=== PATIENT | female | born 1960 | race Caucasian/White ===

== ENCOUNTER → 2020-03-14 12:11 | Outpatient (BNVA) | payer OTHER, SELFPAY | PROVIDERS: PCP Internal Medicine; Referring Provider Internal Medicine; Visit Provider Physician Assistant ==

== ENCOUNTER → 2020-03-28 08:21 | Outpatient (BNVA) | payer OTHER, SELFPAY | PROVIDERS: PCP Internal Medicine; Visit Provider Surgery ==

== ENCOUNTER 2020-04-16 09:22 | Outpatient (REF) | payer OTHER, SELFPAY ==
--- NOTE | ~2020-04-16 | XR_ITS ---
EXAMINATION: XR CHEST CLINICAL INFORMATION: Encounter for other preprocedural examination COMPARISON: None TECHNIQUE: 2 views of the chest were obtained. FINDINGS: No significant abnormality is noted involving the heart, lungs, mediastinum, bony thorax or soft tissues. XR/XR chest 2V IMPRESSION: No acute pulmonary disease.
--- NOTE | ~2020-04-16 | US_ITS ---
EXAMINATION: US COMPLETE ABDOMEN WITH LIVER ELASTOGRAPHY CLINICAL INFORMATION: Obesity COMPARISON: None. TECHNIQUE: Real-time imaging of the abdominal viscera. Noninvasive ultrasound liver fibrosis assessment is performed using Myrtle ElastPQ point quantification shear wave elastography (pSWE) with a C5-2 MHz transducer. Multiple elastography samples are obtained. FINDINGS: PANCREAS: The visualized pancreatic head and body are normal in appearance. The remainder of the pancreas is obscured from visualization by the overlying bowel gas. ABDOMINAL AORTA: The proximal, middle, and distal aortic segments are normal in caliber. INFERIOR VENA CAVA: Visualized portions are normal. LIVER: Liver echotexture is increased. There is a hypoechoic area adjacent to the gallbladder, characteristic location of focal fatty sparing. The liver is normal in contour. No focal lesion or intrahepatic biliary duct dilatation. The right lobe measures 16 cm in length. The left lobe measures 12 cm in length. Portal flow is normal/hepatopedal. Shear wave liver elastography median stiffness is 1.3 m/s (reference: normal median stiffness is 1.3 m/s or less). IQR/median stiffness to assess sampling precision is 0.08 (reference: good quality data set is IQR/median stiffness of 0.15 or less). GALLBLADDER: Normal. The gallbladder is physiologically distended without evidence of stones, sludge, polyps, wall thickening or pericholecystic fluid. COMMON BILE DUCT: Normal in caliber measuring 0.5 cm in diameter. RIGHT KIDNEY: Normal. No hydronephrosis. No renal calculi or focal parenchymal lesions. The kidney measures 11 cm in maximum dimension. LEFT KIDNEY: There is a small peripelvic cyst in the lower pole measuring 1.4 x 1 x 1.1 cm.. No hydronephrosis. No renal calculi or mass. The kidney measures 12 cm in maximum dimension. SPLEEN: Normal. The spleen measures 9 cm in maximum dimension. FREE FLUID: None. US/US abdomen comp w elastography IMPRESSION: 1. Impression: Echogenic liver suggestive of fatty infiltration. Small left renal cyst. Limited visualization of the pancreas. 2. Liver elastography: Normal. No evidence of compensated advanced chronic liver disease. REFERENCE: Society of Radiologists in Ultrasound Liver Stiffness Thresholds (2019): LIVER STIFFNESS THRESHOLDS: *Liver Stiffness equal or less than 1.3 m/s: High probability of being normal. *Liver Stiffness less than 1.7 m/s: In the absence of other known clinical signs, rules out compensated advanced chronic liver disease. *Liver Stiffness 1.7-2.1 m/s: Suggestive of compensated advanced chronic liver disease but need further test for confirmation. *Liver Stiffness over 2.1 m/s: Rules in compensated advanced chronic liver disease. *Liver Stiffness over 2.4 m/s: Suggestive of clinically significant portal hypertension. QUALITY OF DATA SET: *IQR/Median value equal or less than 0.15 implies a quality data set. *IQR/Median value over 0.15 implies a poor quality data set. SIGNIFICANT CHANGE FROM PRIOR EXAM: Significant change if liver stiffness measurement is 10% or greater from prior exam. OTHER CONSIDERATIONS: The stage of liver fibrosis may be overestimated in the setting of acute hepatitis, liver inflammation, elevated liver function tests, hepatic vascular congestion, obstructive cholestasis, non-fasting state, and infiltrative diseases such as amyloidosis and lymphoma. In some patients with NAFLD, the liver stiffness thresholds for compensated advanced chronic liver disease may be lower. In causes other than viral hepatitis and NAFLD, liver stiffness thresholds are not well established.
--- NOTE | 2020-04-16 11:20 | ECG_ITS ---
Test Reason : PREOP Blood Pressure : / mmHG Vent. Rate : 064 BPM Atrial Rate : 064 BPM P-R Int : 164 ms QRS Dur : 094 ms QT Int : 426 ms P-R-T Axes : 028 051 024 degrees QTc Int : 439 ms Normal sinus rhythm Normal ECG No previous ECGs available Referred By: Marcelina Rosales Electronically Signed By:EULOGIO PARRY MD
[2020-04-16 11:39] LABS: MANUAL DIFF FLAG NO
[2020-04-16 11:50] LABS: Basophils Absolute Auto 0.1 X10*3/uL (0.0-0.2); Basophils Percent Auto 0.9 % (0-2); Eosinophils Absolute Auto 0.2 X10*3/uL (0.0-0.4); Eosinophils Percent Auto 3.9 % (0-4); Hematocrit 42.3 % (37-47); Hemoglobin 14.2 g/dl (12.0-16.0); Imm Gran Abs Auto 0.01 X10*3/uL (0.00-0.03); Imm Gran Pct Auto 0.2 % (0.0-0.4); Lymphocytes Absolute Auto 2.1 X10*3/uL (1.2-4.9); Lymphocytes Percent Auto 36.7 % (20-40); Mean Corpuscular HGB Conc 33.6 g/dl (31.0-35.0); Mean Corpuscular Hemoglobin 29.1 pg (27.0-33.0); Mean Corpuscular Volume 86.7 fL (80-98); Mean Platelet Volume 11.2 fL (9.4-12.3); Monocytes Absolute Auto 0.3 X10*3/uL (0.1-1.2); Monocytes Percent Auto 5.7 % (2-11); Neutrophils Percent Auto 52.6 % (45-73); Platelet Count 229 X10*3/uL (160-400); Red Blood Count 4.88 X10*6/uL (4.20-5.50); Red Cell Distribution Width 12.9 % (11.0-16.0); White Blood Count 5.7 X10*3/uL (4.8-10.8)
[2020-04-16 11:58] LABS: INTERNATIONAL NORM RATIO 0.9 (0.9-1.1)
[2020-04-16 12:26] LABS: Alanine Aminotransferase 51 U/L (0-31); Albumin Level 4.7 g/dL (3.5-5.0); Alkaline Phosphatase 83 U/L (39-117); Anion Gap 12 (12-20); Aspartate Amino Transferase 32 U/L (5-31); Bilirubin Total 0.4 mg/dL (0.0-1.0); Blood Urea Nitrogen 24 mg/dL (9-16); C Reactive Protein 1.29 mg/dL (< or = 0.50); Calcium 9.7 mg/dL (8.4-10.2); Carbon Dioxide 26 mmol/L (22-29); Chloride 108 mmol/L (96-108); Cholesterol 187 mg/dL; Estimated Glomerular Filt Rate > 60; Glucose Random 137 mg/dL (60-115); HDL Cholesterol 36 mg/dL; LDL Cholesterol Calculated 124 mg/dl; Potassium 4.6 mmol/L (3.3-5.1); Sodium 141 mmol/L (135-145); Total Protein 7.2 g/dL (6.5-8.0); Triglycerides 135 mg/dL
[2020-04-16 12:50] LABS: TSH reflex Free T4 0.07 uIU/mL (0.32-4.0); Vitamin D 25-OH Total 32.7 ng/mL (>30)
[2020-04-16 13:09] LABS: Estimated Average Glucose 157 mg/dL; Hemoglobin A1c % 7.1 %
[2020-04-16 13:24] LABS: Ferritin 101 ng/mL (10-250); Free T4 (Free Thyroxine) 1.43 ng/dL (0.71-1.85)
[2020-04-17 11:02] LABS: Insulin Level Total 18.5 uIU/mL
[2020-04-17 14:37] LABS: H Pylori Breath Test NOT DETECTED (NOT DETECTED)
[2020-04-17 19:06] LABS: Folate 17.9 ng/mL (> or = 4.0); Vitamin B12 1070 pg/mL (200-900)
[2020-04-20 02:41] LABS: Zinc 85 mcg/dL (60-130)
[2020-04-20 11:17] LABS: Vitamin B1 9 nmol/L (8-30)
[2020-04-22 02:11] LABS: Vitamin A 39 mcg/dL (38-98)
== END 2020-04-16 09:23 | disposition home or self-care (01) ==
LOC: HO.US 09:22
PROVIDERS: Physician Assistant; PCP Internal Medicine; Visit Provider Surgery
DX: Z01.818 Encounter for other preprocedural examination (principal); E66.01 Morbid (severe) obesity due to excess calories; K21.9 Gastro-esophageal reflux disease without esophagitis; E10.59 Type 1 diabetes mellitus with other circulatory complications; I15.2 Hypertension secondary to endocrine disorders; Z90.3 Acquired absence of stomach [part of]; Z98.84 Bariatric surgery status; Z98.890 Other specified postprocedural states
CPT/HCPCS: 36415; 71046; 76705; 76981; 80053; 80061; 82306; 82607; 82728; 82746; 83013; 83036; 83525; 84425; 84439; 84443; 84590; 84630; 85025; 85610; 86140; 93005

== ENCOUNTER 2020-04-17 10:04 | Outpatient (REF) | payer OTHER, SELFPAY ==
--- NOTE | ~2020-04-17 | FL_ITS ---
EXAMINATION: XR GI SERIES CLINICAL INFORMATION: Obesity COMPARISON: None TECHNIQUE: Upper GI series with air, patient swallowed thick and thin barium. FINDINGS: Normal esophageal motility and distention. No mass or mucosal lesions seen in the esophagus, stomach, duodenal bulb. No hiatal hernia seen. No reflux seen during the course of the procedure. The barium passes into the proximal small bowel. FLUOROSCOPY TIME: 0.9 minutes DOSE AREA PRODUCT: 24 uGy-m2 (microgray-meter squared) FL/FL upper GI series IMPRESSION: No significant abnormality demonstrated by barium study.
== END 2020-04-17 10:05 | disposition home or self-care (01) ==
LOC: HO.XRAY 10:04
PROVIDERS: PCP Internal Medicine; Visit Provider Surgery
DX: Z01.818 Encounter for other preprocedural examination (principal); K21.9 Gastro-esophageal reflux disease without esophagitis; I15.2 Hypertension secondary to endocrine disorders; E66.01 Morbid (severe) obesity due to excess calories; E10.59 Type 1 diabetes mellitus with other circulatory complications
CPT/HCPCS: 74240

== ENCOUNTER → 2020-04-25 08:16 | Outpatient (BNVA) | payer OTHER, SELFPAY | PROVIDERS: PCP Internal Medicine; Visit Provider Surgery ==

== ENCOUNTER → 2020-04-30 08:11 | Outpatient (BNVA) | payer OTHER, SELFPAY | PROVIDERS: PCP Internal Medicine; Visit Provider Dietitian, Registered ==

== ENCOUNTER → 2020-05-23 08:11 | Outpatient (BNVA) | payer OTHER, SELFPAY | PROVIDERS: PCP Internal Medicine; Visit Provider Surgery ==

== ENCOUNTER → 2020-05-26 08:12 | Outpatient (BNVA) | payer OTHER, SELFPAY | PROVIDERS: PCP Internal Medicine; Visit Provider Dietitian, Registered | DX: E66.9 Obesity, unspecified (principal) | CPT/HCPCS: 97802 ==

== ENCOUNTER → 2020-06-13 08:04 | Outpatient (BNVA) | payer OTHER, SELFPAY | PROVIDERS: PCP Internal Medicine; Visit Provider Surgery ==

== ENCOUNTER → 2020-06-20 08:15 | Outpatient (BNVA) | payer OTHER, SELFPAY | PROVIDERS: PCP Internal Medicine; Visit Provider Dietitian, Registered | DX: E66.9 Obesity, unspecified (principal); Z68.36 Body mass index [BMI] 36.0-36.9, adult | CPT/HCPCS: 97803 ==

== ENCOUNTER → 2020-07-07 07:16 | Outpatient (BNVA) | payer OTHER, SELFPAY | PROVIDERS: PCP Internal Medicine; Visit Provider Surgery ==

== ENCOUNTER → 2020-07-11 13:05 | Outpatient (BNVA) | payer OTHER, SELFPAY | PROVIDERS: PCP Internal Medicine; Referring Provider Internal Medicine; Visit Provider Physician Assistant ==

== ENCOUNTER 2020-07-15 06:44 | Inpatient (IN) | payer OTHER, SELFPAY ==
[2020-07-07 10:04] VITALS: BMI 37.1
[2020-07-08 13:21] LABS: MANUAL DIFF FLAG NO
[2020-07-08 13:26] LABS: Basophils Percent Auto 0.6 % (0-2); Eosinophils Absolute Auto 0.3 X10*3/uL (0.0-0.4); Eosinophils Percent Auto 5.7 % (0-4); Hematocrit 42.9 % (37-47); Hemoglobin 13.9 g/dl (12.0-16.0); Imm Gran Abs Auto 0.01 X10*3/uL (0.00-0.03); Imm Gran Pct Auto 0.2 % (0.0-0.4); Lymphocytes Absolute Auto 1.8 X10*3/uL (1.2-4.9); Lymphocytes Percent Auto 38.2 % (20-40); Mean Corpuscular HGB Conc 32.4 g/dl (31.0-35.0); Mean Corpuscular Hemoglobin 27.9 pg (27.0-33.0); Mean Platelet Volume 11.3 fL (9.4-12.3); Monocytes Absolute Auto 0.3 X10*3/uL (0.1-1.2); Monocytes Percent Auto 6.1 % (2-11); Neutrophils Absolute Auto 2.4 X10*3/uL (2.0-8.3); Neutrophils Percent Auto 49.2 % (45-73); Platelet Count 203 X10*3/uL (160-400); Red Blood Count 4.99 X10*6/uL (4.20-5.50); Red Cell Distribution Width 12.8 % (11.0-16.0); White Blood Count 4.8 X10*3/uL (4.8-10.8)
[2020-07-08 13:30] LABS: Prothrombin Time 11.3 SEC (10.8-13.0)
[2020-07-08 13:34] LABS: Partial Thromboplastin Time 36.4 SEC (24.1-38.0)
[2020-07-08 13:36] LABS: Estimated Average Glucose 134 mg/dL; Hemoglobin A1c % 6.3 %
[2020-07-08 14:04] LABS: Alanine Aminotransferase 28 U/L (0-31); Albumin Level 4.5 g/dL (3.5-5.0); Alkaline Phosphatase 86 U/L (39-117); Anion Gap 10 (12-20); Aspartate Amino Transferase 20 U/L (5-31); Bilirubin Total 0.4 mg/dL (0.0-1.0); Blood Urea Nitrogen 21 mg/dL (9-16); C Reactive Protein 1.36 mg/dL (< or = 0.50); Calcium 9.7 mg/dL (8.4-10.2); Carbon Dioxide 28 mmol/L (22-29); Chloride 106 mmol/L (96-108); Cholesterol 209 mg/dL; Estimated Glomerular Filt Rate > 60; Glucose Random 123 mg/dL (60-115); HDL Cholesterol 40 mg/dL; LDL Cholesterol Calculated 135 mg/dl; Potassium 4.3 mmol/L (3.3-5.1); Sodium 140 mmol/L (135-145); Total Protein 7.1 g/dL (6.5-8.0); Triglycerides 170 mg/dL
[2020-07-08 14:08] LABS: Erythrocyte Sedimentation Rate 6 MM/HR (0-20)
[2020-07-08 14:22] LABS: Vitamin B12 940 pg/mL (200-900)
[2020-07-08 14:27] LABS: TSH reflex Free T4 0.05 uIU/mL (0.32-4.0)
[2020-07-08 15:42] LABS: Free T4 (Free Thyroxine) 1.32 ng/dL (0.71-1.85)
[2020-07-09 12:57] LABS: Insulin Level Total 16.4 uIU/mL
[2020-07-09 13:46] LABS: Lyme Abs Screen <0.90 index
[2020-07-09 15:01] LABS: IgA 132 mg/dL (47-310); IgG 876 mg/dL (600-1640); IgM 47 mg/dL (50-300)
[2020-07-09 22:17] LABS: Prot Elec - Albumin 4.2 g/dL (3.8-4.8); Prot Elec - Alpha1 0.3 g/dL (0.2-0.3); Prot Elec - Alpha2 0.7 g/dL (0.5-0.9); Prot Elec - Beta 1 0.4 g/dL (0.4-0.6); Prot Elec - Beta 2 0.4 g/dL (0.2-0.5); Prot Elec - Gamma 0.8 g/dL (0.8-1.7); Prot Elec - Total Protein 6.7 g/dL (6.1-8.1)
[2020-07-10 13:57] LABS: Myeloperoxidase Antibody <1.0 AI; Proteinase 3 PR3 Antibodies <1.0 AI
[2020-07-11 14:11] LABS: Anti Nuclear Antibody Screen NEGATIVE (NEGATIVE)
--- NOTE | 2020-07-14 08:29 | HO.ANESPROP2 ---
Documented by User: Lucia Pabon 07/14/20 10:11 HPI - Anesthesia Eval Consult details Narrative: 59yo F for Gastrectomy Sleeve h/o SVT, on Beta-skylar, no ablation (pt considering in future) PMFSH Active Problems Active Problems: All Active Problems (Updated 07/07/20 @ 10:08 by Beata Velazquez) Morbid obesity (Acute) Hypothyroidism (acquired) (Acute) Diabetes mellitus (Acute) Hypertension associated with type 1 diabetes mellitus (Acute) Anxiety (Acute) GERD (gastroesophageal reflux disease) (Acute) Obstructive sleep apnea on CPAP (Acute) Major depressive disorder, single episode, moderate (Acute) BMI 39.0-39.9,adult (Acute) BMI 38.0-38.9,adult (Acute) BMI 37.0-37.9, adult (Acute) Obesity (Acute) Back pain (Acute) Knee pain (Acute) Asthma (Acute) Low back pain (Acute) Past Medical History Medical History Arthritis Asthma Back pain COVID-19 vaccine administered Depression Diabetes GERD (gastroesophageal reflux disease) H. pylori infection History of anxiety HTN (hypertension) Knee pain Low back pain Obesity Sleep apnea SVT (supraventricular tachycardia) Thyroid disease Family History Family History Mother No problems noted. Father Hypertension Brother No problems noted. 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 If so, by whom?: No Are you DNR?: No Advance Directives Information Provided: No Recently lost weight without trying: No Eating poorly because of decreased appetite: No Nutrition Risks: No Nutritional Risk Poor oral hygiene: No (has dental crowns) Meds Allergies Allergy/AdvReac Type Severity Reaction Status Date / Time epinephrine [EPINEPHRINE] Allergy Severe throat Verified 07/15/20 07:24 closes oxycodone [OXYCODONE] Allergy Severe severe Verified 07/15/20 07:24 itching esomeprazole [From NEXIUM] AdvReac Mild nausea/head Verified 07/15/20 07:24 ache omeprazole [From PRILOSEC] AdvReac Mild nausea/head Verified 07/15/20 07:24 ache Home Medications Medication Instructions Recorded Confirmed Last Taken Type amlodipine 5 mg tablet 5 mg PO BEDTIME 03/14/20 07/07/20 Unknown History escitalopram oxalate 10 mg tablet 10 mg PO DAILY 03/14/20 07/07/20 Unknown History levothyroxine 137 mcg capsule 112 mcg PO QAM 03/14/20 07/07/20 07/15/20 History metoprolol succinate 200 mg 100 mg PO BID 03/14/20 07/07/20 Unknown History tablet,extended release 24 hr pantoprazole 40 mg tablet,delayed 40 mg PO DAILY 03/14/20 07/07/20 Unknown History release albuterol sulfate 90 mcg/actuation 2 puff INHALATION Q6H PRN 03/28/20 07/07/20 Unknown History aerosol inhaler lorazepam 0.5 mg tablet 0.5 mg PO BEDTIME PRN 03/28/20 07/07/20 Unknown History Exam Exam Date and Time: July 14, 2020 0829 Height,Weight and Vital Signs: Height 5 ft 2 in Weight 92.079 kg Pertinent Lab Results Pertinent Lab Results: Laboratory Tests 07/08/20 07/08/20 07/08/20 12:55 12:55 12:55 WBC 4.8 RBC 4.99 Hgb 13.9 Hct 42.9 MCV 86.0 MCH 27.9 MCHC 32.4 RDW 12.8 Plt Count 203 MPV 11.3 Immature Gran % (Auto) 0.2 Neut % (Auto) 49.2 Lymph % (Auto) 38.2 [place] % (Auto) 6.1 Eos % (Auto) 5.7 H Baso % (Auto) 0.6 Lymph # (Auto) 1.8 [place] # (Auto) 0.3 Eos # (Auto) 0.3 Baso # (Auto) 0.0 Abs Immat Gran (auto) 0.01 Absolute Neuts (auto) 2.4 Absolute Nucleated RBC 0.000 Nucleated RBC % (auto) 0.0 ESR PT 11.3 INR 1.0 APTT 36.4 Sodium 140 Potassium 4.3 Chloride 106 Carbon Dioxide 28 Anion Gap 10 L BUN 21 H Creatinine 0.80 Estim Creat Clear Calc 79.0 Estimated GFR > 60 Random Glucose 123 H Estimat Average Glucose Hemoglobin A1c % Total Insulin Calcium 9.7 Total Bilirubin 0.4 AST 20 ALT 28 Alkaline Phosphatase 86 Total Creatine Kinase C-Reactive Protein 1.36 H Total Protein 7.1 Total Protein (PEP) Albumin 4.5 Albumin (PEP) Yewop-0-Xcxvfuimi Ybiwn-0-Xnagldlvs Ktgw-4-Gzikyjsg Qqvq-7-Tvbnvfvn Gamma Globulins Abnorm Protein Band 1 Abnorm Protein Band 2 Abnorm Protein Band 3 PEP Interpretation Triglycerides 170 Cholesterol 209 LDL Cholesterol, Calc 135 HDL Cholesterol 40 Vitamin B12 TSH 0.05 L Free T4 1.32 IgG Total IgA Total IgM VESTA Interpretation JOSUE Screen JOSUE Titer JOSUE Titer 2 JOSUE Titer 3 JOSUE Pattern JOSUE Pattern 2 JOSUE Pattern 3 Proteinase 3 (PR3) Ab Myeloperoxidase Ab Lyme Screen IgG & IgM Lyme Progressive Test Blood Type Antibody Screen 07/08/20 07/08/20 07/08/20 12:55 12:55 12:55 WBC RBC Hgb Hct MCV MCH MCHC RDW Plt Count MPV Immature Gran % (Auto) Neut % (Auto) Lymph % (Auto) [place] % (Auto) Eos % (Auto) Baso % (Auto) Lymph # (Auto) [place] # (Auto) Eos # (Auto) Baso # (Auto) Abs Immat Gran (auto) Absolute Neuts (auto) Absolute Nucleated RBC Nucleated RBC % (auto) ESR PT INR APTT Sodium Potassium Chloride Carbon Dioxide Anion Gap BUN Creatinine Estim Creat Clear Calc Estimated GFR Random Glucose Estimat Average Glucose 134 Hemoglobin A1c % 6.3 Total Insulin 16.4 Calcium Total Bilirubin AST ALT Alkaline Phosphatase Total Creatine Kinase C-Reactive Protein Total Protein Total Protein (PEP) Albumin Albumin (PEP) Jklfw-1-Letopahzn Hemro-0-Wtkbxdlul Pcrt-7-Bgfkymoh Wncd-4-Gehqhygv Gamma Globulins Abnorm Protein Band 1 Abnorm Protein Band 2 Abnorm Protein Band 3 PEP Interpretation Triglycerides Cholesterol LDL Cholesterol, Calc HDL Cholesterol Vitamin B12 TSH Free T4 IgG Total IgA Total IgM VESTA Interpretation JOSUE Screen JOSUE Titer JOSUE Titer 2 JOSUE Titer 3 JOSUE Pattern JOSUE Pattern 2 JOSUE Pattern 3 Proteinase 3 (PR3) Ab Myeloperoxidase Ab Lyme Screen IgG & IgM Lyme Progressive Test Blood Type O Positive Antibody Screen NEGATIVE 07/08/20 07/08/20 07/08/20 12:55 12:55 12:55 WBC RBC Hgb Hct MCV MCH MCHC RDW Plt Count MPV Immature Gran % (Auto) Neut % (Auto) Lymph % (Auto) [place] % (Auto) Eos % (Auto) Baso % (Auto) Lymph # (Auto) [place] # (Auto) Eos # (Auto) Baso # (Auto) Abs Immat Gran (auto) Absolute Neuts (auto) Absolute Nucleated RBC Nucleated RBC % (auto) ESR 6 PT INR APTT Sodium Potassium Chloride Carbon Dioxide Anion Gap BUN Creatinine Estim Creat Clear Calc Estimated GFR Random Glucose Estimat Average Glucose Hemoglobin A1c % Total Insulin Calcium Total Bilirubin AST ALT Alkaline Phosphatase Total Creatine Kinase 59 C-Reactive Protein Total Protein Total Protein (PEP) Albumin Albumin (PEP) Apluk-9-Ekoznhnmb Rjnja-3-Fzjwiysfm Lfcw-1-Zvrnajuj Gnff-6-Eydozhcc Gamma Globulins Abnorm Protein Band 1 Abnorm Protein Band 2 Abnorm Protein Band 3 PEP Interpretation Triglycerides Cholesterol LDL Cholesterol, Calc HDL Cholesterol Vitamin B12 TSH Free T4 IgG Total IgA Total IgM VESTA Interpretation JOSUE Screen JOSUE Titer JOSUE Titer 2 JOSUE Titer 3 JOSUE Pattern JOSUE Pattern 2 JOSUE Pattern 3 Proteinase 3 (PR3) Ab Myeloperoxidase Ab Lyme Screen IgG & IgM <0.90 Lyme Progressive Test TNP Blood Type Antibody Screen 07/08/20 07/08/20 07/08/20 12:55 12:55 12:55 WBC RBC Hgb Hct MCV MCH MCHC RDW Plt Count MPV Immature Gran % (Auto) Neut % (Auto) Lymph % (Auto) [place] % (Auto) Eos % (Auto) Baso % (Auto) Lymph # (Auto) [place] # (Auto) Eos # (Auto) Baso # (Auto) Abs Immat Gran (auto) Absolute Neuts (auto) Absolute Nucleated RBC Nucleated RBC % (auto) ESR PT INR APTT Sodium Potassium Chloride Carbon Dioxide Anion Gap BUN Creatinine Estim Creat Clear Calc Estimated GFR Random Glucose Estimat Average Glucose Hemoglobin A1c % Total Insulin Calcium Total Bilirubin AST ALT Alkaline Phosphatase Total Creatine Kinase C-Reactive Protein Total Protein Total Protein (PEP) 6.7 Albumin Albumin (PEP) 4.2 Dwcff-1-Qwxikdxjr 0.3 Umfid-1-Bhcouwxlp 0.7 Shrb-2-Bowqnvrn 0.4 Firj-0-Npyubxzw 0.4 Gamma Globulins 0.8 Abnorm Protein Band 1 TNP Abnorm Protein Band 2 TNP Abnorm Protein Band 3 TNP PEP Interpretation SEE NOTE Triglycerides Cholesterol LDL Cholesterol, Calc HDL Cholesterol Vitamin B12 940 H TSH Free T4 IgG Total 876 IgA Total 132 IgM 47 L VESTA Interpretation JOSUE Screen NEGATIVE JOSUE Titer TNP JOSUE Titer 2 TNP JOSUE Titer 3 TNP JOSUE Pattern TNP JOSUE Pattern 2 TNP JOSUE Pattern 3 TNP Proteinase 3 (PR3) Ab <1.0 Myeloperoxidase Ab <1.0 Lyme Screen IgG & IgM Lyme Progressive Test Blood Type Antibody Screen Narrative Narrative: EKG 03/2020 Vent. Rate : 064 BPM Atrial Rate : 064 BPM P-R Int : 164 ms QRS Dur : 094 ms QT Int : 426 ms P-R-T Axes : 028 051 024 degrees QTc Int : 439 ms Normal sinus rhythm Normal ECG No previous ECGs available Assessment and Plan Assessment Anesthesia Assessment: Chart Reviewed Documented by User: Eleazar Gaytan 07/15/20 07:34 PMF Past Medical History Medical History Arthritis Asthma Back pain COVID-19 vaccine administered Depression Diabetes GERD (gastroesophageal reflux disease) H. pylori infection History of anxiety HTN (hypertension) Knee pain Low back pain Obesity Sleep apnea SVT (supraventricular tachycardia) Thyroid disease Family History Family History Mother No problems noted. Father Hypertension Brother No problems noted. Brother Hypertension Daughter Drug abuse Daughter Anxiety Drug abuse Surgical History Surgical History H/O thyroidectomy History of surgery on wrist Hx of colonoscopy Hx of endoscopy Hx of hysterectomy S/P panniculectomy Social History Social History Household Members Other:: natalie-age 10 Are you a primary rn progressive care unit to a significant other at home: Yes Do you presently have visiting nurse or other home services: No Alcohol intake: never Smoking Status: Former smoker Tobacco Type: Cigarette Years Smoked: 34 Smoked in Last 30 Days: No Smoking Quit Date: 2007 Use of substances other than those prescribed or required for medical reasons: No Have you been hit, kicked, punched, or otherwise hurt by someone within the past year? If so, by whom?: No Are you DNR?: No Advance Directives Information Provided: No Recently lost weight without trying: No Eating poorly because of decreased appetite: No Nutrition Risks: No Nutritional Risk Poor oral hygiene: No (has dental crowns) Meds Allergies Allergy/AdvReac Type Severity Reaction Status Date / Time epinephrine [EPINEPHRINE] Allergy Severe throat Verified 07/15/20 07:24 closes oxycodone [OXYCODONE] Allergy Severe severe Verified 07/15/20 07:24 itching esomeprazole [From NEXIUM] AdvReac Mild nausea/head Verified 07/15/20 07:24 ache omeprazole [From PRILOSEC] AdvReac Mild nausea/head Verified 07/15/20 07:24 ache Home Medications Medication Instructions Recorded Confirmed Last Taken Type amlodipine 5 mg tablet 5 mg PO BEDTIME 03/14/20 07/07/20 Unknown History escitalopram oxalate 10 mg tablet 10 mg PO DAILY 03/14/20 07/07/20 Unknown History levothyroxine 137 mcg capsule 112 mcg PO QAM 03/14/20 07/07/20 07/15/20 History metoprolol succinate 200 mg 100 mg PO BID 03/14/20 07/07/20 Unknown History tablet,extended release 24 hr pantoprazole 40 mg tablet,delayed 40 mg PO DAILY 03/14/20 07/07/20 Unknown History release albuterol sulfate 90 mcg/actuation 2 puff INHALATION Q6H PRN 03/28/20 07/07/20 Unknown History aerosol inhaler lorazepam 0.5 mg tablet 0.5 mg PO BEDTIME PRN 03/28/20 07/07/20 Unknown History Exam Airway Mallampati Class: III TM Dist: >3cm Neck ROM: Full Loose/Missing/Broken Teeth: Yes (Many missing) Heart: [id number] Lungs: cta b/l Assessment and Plan Assessment Anesthesia Assessment: Anesthesia Plan Discussed, PAT Visit and Chart Reviewed Final Anesthetic Review NPO: Yes ASA Class: III Final Preanesthetic Review: No Changes in Pt Med Stat, Meds/Allgs Chart Reviewed, Consent Obtained/Reviewed and Anes Risks/Benef Reviewed Patient Risk: Intermediate Procedure Risk: Low Assessment/Block/Sedation in SS: Assess/Block/Sedation-SS Anesthetic Plan Anesthetic Plan: GA and Agree w/ Assess. and Plan Disposition: Standard PACU
--- NOTE | 2020-07-14 18:33 | MHC.SHP ---
Pre-Procedural Eval Section A The patient is an INPATIENT: Yes The History & Physical has been completed within 30 days and I have reviewed it.: Yes Section B Chief Complaint: obesity Details of Present Illness: obesity Relevant Family History (Specify if Yes): No Relevant Social History: None Present Medications: see Short Stay Collaborative assessment Medical History: No relevant PMH History of Previous Operations: No relevant previous surgery Allergies: Allergies Allergy/AdvReac Type Severity Reaction Status Date / Time epinephrine [EPINEPHRINE] Allergy Severe throat Verified 07/07/20 10:13 closes oxycodone [OXYCODONE] Allergy Severe severe Verified 07/07/20 10:13 itching esomeprazole [From NEXIUM] AdvReac Mild nausea/head Verified 07/07/20 10:13 ache omeprazole [From PRILOSEC] AdvReac Mild nausea/head Verified 07/07/20 10:13 ache Review of Systems Sugical H&P ROS: Negative: Constitution, Cardiovascular, Respiratory, Neurological, Psychiatric, Hem-Onc, Allergic/Immunologic, Gastrointestinal, Genitourinary, Musculoskeletal, Integumentary, Endocrine and Eyes/Ears/Nose/Throat Exam Surgical H&P Exam: Normal: HEENT, Normal: Heart, Normal: Lungs, Normal: Extremities, Normal: Abdomen, Normal: Skin and Normal: Neurological Plan Diagnosis/Plan: Unchanged I have reviewed the history and physical and performed a pertinent physical examination on my patient. No changes have occurred unless specified.
[2020-07-15] VITALS (15 sets, daily range): BP systolic 114–152; BP diastolic 50–83; PULSE 67–80; RESP 11–18; TEMP 36.2–36.9; O2SAT 91–100
[2020-07-15 07:02] LABS: Glucose, Whole Blood 103 mg/dL (60-115)
[2020-07-15] MEDS: Lactated Ringers 1,000 ML 999 ML IV (07:08)
[2020-07-15 07:11] LABS: COVID-19 Test Negative (Negative)
[2020-07-15] MEDS: Lactated Ringers 1,000 ML 100 ML IVCONT (07:16)
--- NOTE | 2020-07-15 10:52 | PM.OP ---
Brief Operative Note Date of Service: 07/15/20 Pre-op diagnosis: Severe obesity with comorbidities (see below) Post-op diagnosis: same (& diaphragmatic hernia) Procedure: INITIAL PATIENT BMI ON PRESENTATION AT OUR OFFICE: 41 kg/m2 LAST BMI BEFORE SURGERY: 36.6 kg/m2 COMORBIDITIES: sleep apnea on CPAP, hypothyroidism, GERD, non-insulin dependent diabetes, hypertension, asthma, anxiety, knee/back pain, liver steatosis, history of SVT The patient participated in an intensive weekly lifestyle intervention and exercise program during which the patient has lost between the initial office visit and the last preoperative visit 24.9lbs, or 11.1% of initial actual body weight. The patient met the BMI-criteria for bariatric surgery based on the BMI on initial presentation. The patient should not be penalized for achieving such weight loss because it is not sustainable long-term without surgical intervention and it was achieved in preparation for bariatric surgery under my direction and based on my published research ([email or web address] and [email or web address]) that a 10% preoperative weight loss improves long-term weight loss after surgery and reduces perioperative complications. Insurance carriers such as [facility] have endorsed my recommendations and have included in their policies criteria to include a 10% preoperative weight loss requirement. PROCEDURE: Esophago-gastroscopy, laparoscopic repair of incarcerated diaphragmatic hernia, laparoscopic sleeve gastrectomy and laparoscopic gastropexy INDICATIONS: This is a 59 year-old female who was electively scheduled for laparoscopic, possibly open sleeve gastrectomy. The risks and complications of the procedure were discussed with the patient in advance, particularly the possibility of ; pulmonary embolism; staple line leak; bleeding; GERD; cardiac, pulmonary, or renal complications; as well as long-term problems such as insufficient weight loss, vitamin deficiency, strictures, or ulcers. The patient understood all the risks, and was in agreement to proceed with surgery. DESCRIPTION OF PROCEDURE: After informed consent was obtained from the patient, the patient was given preoperative antibiotics, and was transferred to the operating room. After successful induction of general anesthesia, pneumatic compressive devices were placed on both lower extremities. An upper endoscopy was performed next. The oropharynx and esophagus appeared to be within normal limits. There was a diaphragmatic hernia present of moderate size consistent with the findings of the preoperative upper GI. The stomach was entered. Then after all fluid and air were suctioned and the stomach was fully decompressed, the scope was withdrawn and secured in the mid esophagus. The patient was then prepped and draped in the usual sterile manner, and abdominal access was established at the right upper quadrant with the Jossue technique. A 12 mm blunt port was inserted, and the abdomen was insufflated with CO2 to a pressure of 15 mmHg. Under direct visualization, additional ports were placed, specifically two 5 mm Versi-step ports to the left upper quadrant, and a 5 mm Versi-Step port to the right upper quadrant. 1% lidocaine plan was used to infiltrate all port sites as well as all fascia defects. Using the EndoClose suture passer device, we placed a #1 Polysorb tie across the falciform ligament in order to retract it up against the abdominal wall and prevent injury of the ligament with our instruments during the procedure. Following that, the patient was placed in a steep reverse Trendelenburg position. An additional 5 mm port was placed to the right flank for the Mediflex retractor that was used to retract the left lobe of the liver. The gastro-esophageal fat pad was opened with the ultrasonic device (Thunderbeat, Olympus) and the anterior esophagus and hiatus were exposed. The angle of His was opened with the ultrasonic device the fundus of the stomach from any diaphragmatic and splenic attachments. I then opened the gastrocolic ligament between the transverse colon and the greater curvature of the stomach with the ultrasonic device to enter the lesser sac and facilitate the ligation of the short gastric vessels. I started at a mid-point along the greater curvature and using the Thunderbeat, all short gastric vessels were divided all the way to the angle of His until the left mirna was completely dissected at its entirety. I then divided the gastro-colic ligament distally to a distance of about 3-4 cm proximal to the esophagus. There was an obvious significant-sized hiatal hernia. I continued dissecting along the hiatus toward the left mirna and the angle of His. I fully mobilized the fat pad that was incarcerated in the hernia. I then continued by dissecting even further into the posterior retro-esophageal space all the way to the angle of His. I continued to mobilize the esophagus into the mediastinum circumferentially. At that point, I was able to have at least 3 to 5 cm of esophagus into the abdomen. After I completely mobilized the esophagus from both the left and right mirna and I had a good mobilization of the esophagus circumferentially, I closed the hernia defect with two interrupted #0 Surgidac sutures using the Endo Stitch device, both of which were placed posterior to the esophagus. The stomach was then divided transversely with one Endo JOSE-45 and five JOSE-60 articulating purple loads using the mywaves stapler and loads. Every effort was made that the gastric sleeve had a tubular shape and an even caliber throughout. Once the sleeve resection was completed, the staple line of the gastric sleeve was reinforced with Hemoclips. The resected stomach was retrieved without difficulty from the Jossue port. A gastropexy was then performed in order to prevent postoperative GERD and partial gastric volvulus. Several interrupted 2.0 Surgidac sutures were placed between the sleeve's staple line and the previously divided greater omentum and gastro-colic ligament using the Endo-Stitch device. An upper endoscopy was performed. There was no narrowing at the GE junction. The scope was easily advanced all the way to the pylorus which was clearly visualized. There was no narrowing anywhere and the sleeve's caliber was even throughout. The sleeve's staple line was inspected and there was no evidence of ischemia, bleeding or dehiscence. At that point the gastroscope was withdrawn from the patient?s mouth while we were decompressing the bowel and the stomach from any remaining air. I looked into the lesser sac to see how the sleeve was situating and it was situating well. There was no bleeding from the staple line, spleen, or short gastric vessels. The Mediflex retractor was removed, and the undersurface of the liver was inspected and there was no bleeding. The patient was placed in supine position. I closed the fascial defect of the 12 mm port site with a figure of eight #1 Polysorb suture. Then 100 cc 0.25 % Marcaine plain with 10 mg of Dexamethasone were used to infiltrate the fascial closure as well as all skin incisions. At this point, the abdomen was deflated, all ports were removed under direct vision, and no bleeding was noted from any of the port sites. The skin incisions were irrigated with saline and were closed with 4-0 absorbable monofilament sutures. Steri-Strips and OpSites were used to cover all incisions. The patient was extubated and was transferred in stable condition to the recovery room for further care. I was present and performed all agustin parts of the procedure. Ms. Rosales was the heel sprayer first. There were no residents to assist with this case. Eagle West MD, PhD, FACS Surgeon: Sebastián West MD Anesthesia: GETA, local and other (TAP block) Was an Care Specialist used for this Procedure?: Yes Care Specialist: Marcelina Rosales Estimated blood loss (mL): 10 IV fluids (mL): 3,000 Urine output (mL): 0 (No Torres to record) Pathology: other (Stomach) Condition: stable Disposition: PACU
--- NOTE | 2020-07-15 10:57 | P.DS_ITS ---
DS: Providers Provider Date of Service: 07/16/20 Date of admission: 07/15/20 06:44 Primary care physician: Danna Gomez MD DS: Medications Discharge Medications Home Medications: Home Medications Medication Instructions Recorded Confirmed amlodipine 5 mg tablet 5 mg PO BEDTIME 03/14/20 07/07/20 escitalopram oxalate 10 mg tablet 10 mg PO DAILY 03/14/20 07/07/20 levothyroxine 137 mcg capsule 112 mcg PO QAM 03/14/20 07/07/20 metoprolol succinate 200 mg 100 mg PO BID 03/14/20 07/07/20 tablet,extended release 24 hr pantoprazole 40 mg tablet,delayed 40 mg PO DAILY 03/14/20 07/07/20 release albuterol sulfate 90 mcg/actuation 2 puff INHALATION Q6H PRN 03/28/20 07/07/20 aerosol inhaler lorazepam 0.5 mg tablet 0.5 mg PO BEDTIME PRN 03/28/20 07/07/20 Previous Rx's Medication Instructions Recorded ondansetron HCl 4 mg tablet 4 mg PO Q12H #20 tab 07/07/20 polyethylene glycol 3350 17 gram 17 g PO DAILY #14 ea 07/07/20 oral powder packet sucralfate 100 mg/mL oral 10 ml PO BID #400 ml 07/07/20 suspension DS: Summary Time Spent with Patient Time attestation: ADMITTING DIAGNOSIS: morbid obesity, GERD, paraesophageal hernia, HTN, SVT, asthma, depression, hypothyroidism DISCHARGE DIAGNOSIS: same, s/p laparoscopic sleeve gastrectomy and repair diaphragmatic hernia PAST SURGICAL HISTORY: hysterectomy, panniculectomy PROCEDURE: upper endoscopy, laparoscopic sleeve gastrectomy and repair of diaphragmatic hernia hernia DISCHARGE SUMMARY: History of Present Illness: The patient is a 59 year-old woman with a BMI of 40.9 kg/m2 and associated co- morbidities as described above. The patient had extensive work-up,lost 22.9 lbs preoperatively and was electively scheduled for laparoscopic, possible open sleeve gastrectomy and gastropexy. Risks and complications of the surgery were discussed with the patient in advance, particularly the possibility of , pulmonary embolism, anastomotic leak, bleeding, bowel injury, GERD, cardiac, renal or pulmonary complications. The patient understood all the risks and was in agreement with the surgical plan. Hospital Course: The patient underwent an uneventful laparoscopic sleeve gastrectomy with gastropexy and repair of diaphragmatic hernia on the day of admission. Postoperatively, the patient was transferred to the surgical floor. The patient was on IV Acetaminophen and IV dilaudid for pain control. Patient was started on bariatric phase 1 diet POD #0. On postoperative day one, the patient was feeling well without nausea, vomiting, fevers, or tachycardia. The patient had some mild incisional pain. The abdomen was soft. On the morning of postoperative day one, the patient was continued on 1 ounce of water or ice every half hour. During the first day, the patient did fairly well, having some incisional pain, but able to ambulate adequately and to tolerate liquids well. Since the patient is doing well, we decided that the patient was ready to be discharged. The patient was given instructions to follow-up with me next week and to call my office for any fever over 101, persistent abdominal pain, nausea, vomiting, GERD, symptoms of DVT such as calf tenderness, or leg swelling, or pulmonary embolism such as chest pain or shortness of breath. The patient was also instructed to drink 40-60 ounces of liquids per day using the 1-ounce cups. The patient was given prescription for Tylenol for pain, Zofran prn for nausea, and pantoprazole and carafate. The patient was encouraged to ambulate and use the incentive spirometer. The patient was allowed to shower, but no baths, and encouraged to stay active at home. All of these instructions were given to the patient personally. All questions were answered and the patient understood all instructions, the instructions were also given to the patient in print. Total time spent providing and/or coordinating discharge services: 15 Discharge coordination time: Less than 30 minutes Quality: Stroke Does the patient have a stroke diagnosis?: No Physical Exam Vital Signs: Vital Signs: Last Vital Signs Temp 98.5 F 07/15/20 06:41 Pulse 67 07/15/20 06:41 Resp 18 07/15/20 06:41 BP 136/61 07/15/20 06:41 Pulse Ox 96 07/15/20 06:41 Body Mass Index 37.1 DS: Data Data Completed and Pending Pending studies at discharge: Pending at discharge 07/15/20 10:01 Surgical [PTH] Routine Labs on day of discharge: Laboratory Results - last 24 hr 07/15/20 07/15/20 06:29 06:57 POC Glucose 103 COVID-19 (JENNIFER) Negative COVID-19 Clin Com See Note Discharge Plan Discharge Anticipated Discharge Date/Time: 07/16/20 12:53 Patient Disposition: Home, Self-Care Discharge Diagnosis: pod # 1 s/p sleeve gastrectomy Referrals: Danna Gomez MD [Primary Care Provider] - 1 Week Discharge Medications: Continued sucralfate 100 mg/mL suspension 10 ml PO BID Qty: 400 RF: 2 ondansetron HCl [Zofran] 4 mg tablet 4 mg PO Q12H Qty: 20 RF: 0 metoprolol succinate 200 mg tablet extended release 24 hr 100 mg PO BID RF: 0 amlodipine 5 mg tablet 5 mg PO BEDTIME RF: 0 levothyroxine 137 mcg capsule 112 mcg PO QAM RF: 0 pantoprazole 40 mg tablet,delayed release (DR/EC) 40 mg PO DAILY RF: 0 escitalopram oxalate [Lexapro] 10 mg tablet 10 mg PO DAILY RF: 0 albuterol sulfate [ProAir HFA] 90 mcg/actuation HFA aerosol inhaler 2 puff inhalation Q6H PRN (Reason: Shortness Of Breath Or Wheezing) RF: 0 lorazepam 0.5 mg tablet 0.5 mg PO BEDTIME PRN (Reason: Anxiety) RF: 0 Discontinued polyethylene glycol 3350 [Miralax] 17 gram powder in packet 17 g PO DAILY Qty: 14 RF: 0 Discharge Orders: Discharge Order (Routine); Ordered 07/16/20 Ordered By: Sebastián West Diet: other Activity on Discharge: No heavy lifting Stand Alone Forms: Patient Portal Discharge page Activity Restrictions/Additional Instructions: No tub baths, sex or returning to work until discussed at first post op appointment. No exercise, alcohol, tobacco or illegal drug use. Continue to use incentive spirometer hourly while awake. Walk in home for 5- 10 minutes every 2 hours during the first week. Continue phase 1 diet today and start phase 2 diet tomorrow morning. Follow all instructions in the bariatric handbook and call with any questions. Care Plan Goals: weight loss Health Concerns: morbid obesity Plan of Treatment: see discharge instructions Assessment: stable post op sleeve gastrectomy Discharge Date/Time: 07/16/20 13:03
--- NOTE | 2020-07-15 10:59 | PM.PNGS ---
Subjective Subjective Date of Service: 07/16/20 Interval history: Patient has mild incisional pain. Was able to ambulate and use the incentive spirometer. Tolerating phase 1 bariatric diet. Physical Exam Vital Signs: Vital Signs: Last Vital Signs Temp 97.8 F 07/15/20 10:50 Pulse 72 07/15/20 10:50 Resp 12 07/15/20 10:50 BP 135/72 07/15/20 10:50 Pulse Ox 91 L 07/15/20 10:50 Body Mass Index 37.1 GI: Inspection: Yes normal to inspection and Yes incision (clean, dry and intact) Extrem: Right lower extremity: normal to inspection (no calf tenderness) Left lower extremity: normal to inspection (no calf tenderness) Progress Note: A&P Assessment and plan (1) Obesity: Status: Acute (2) BMI 36.0-36.9,adult: Status: Acute (3) S/P laparoscopic sleeve gastrectomy: Status: Acute Assessment and Plan: Patient is s/p laparoscopic diaphragmatic hernia repair, sleeve gastrectomy and gastropexy Doing well and tolerating phase 1 bariatric diet Check am labs, if OK will discharge patient (4) S/P repair of paraesophageal hernia: Status: Acute (5) Paraesophageal hernia: Status: Acute (6) Hypothyroidism (acquired): Status: Acute (7) Diabetes mellitus: Status: Acute (8) Hypertension associated with type 1 diabetes mellitus: Status: Acute (9) Anxiety: Status: Acute (10) GERD (gastroesophageal reflux disease): Status: Acute (11) Obstructive sleep apnea on CPAP: Status: Acute (12) Back pain: Status: Acute (13) Knee pain: Status: Acute (14) Asthma: Status: Acute (15) Steatosis, liver: Status: Acute Fall Risk Details Current Medications: Current Medications Generic Name Dose Route Start Last Admin Trade Name Freq PRN Reason Stop Dose Admin Albuterol Sulfate 2.5 mg 07/15/20 05:51 Albuterol Sulfate (0.083%) 2.5 Mg/3 Ml Vial.Neb INHALE ONCE PRN Shortness of Breath/Wheezing Fentanyl 50 mcg 07/15/20 07:35 Fentanyl Citrate/Pf 100 Mcg/2 Ml Vial IVPUSH Q5M PRN Pain, Moderate (Pain Scale 4-6 Hydromorphone HCl 0.5 mg 07/15/20 07:35 Hydromorphone Hcl 0.5 Mg/0.5 Ml Syringe IVPUSH Q5M PRN Pain, Severe (Pain Scale 7-10) Lactated Ringer's 1,000 mls @ 100 mls/hr 07/15/20 06:00 07/15/20 07:16 Lr IVCONT 100 mls/hr .Q10H JAIRON Administration Promethazine HCl 12.5 mg/ 50.5 mls @ 202 mls/hr 07/15/20 07:35 Sodium Chloride IV ONCE PRN Nausea and Vomiting Ondansetron HCl 4 mg 07/15/20 07:35 Ondansetron Hcl 4 Mg/2 Ml Vial IVPUSH ONCE PRN Nausea and Vomiting Oxycodone HCl 10 mg 07/15/20 07:35 Oxycodone Hcl Immed Release 5 Mg Tablet PO ONCE PRN Pain, Mild (Pain Scale 1-3) Time Spent With Patient Time: Total time spent is greater than 50% in coordination of care (as documented) at patient's floor/unit and/or counseling patient: Time with patient: less than 15 minutes Procedures Date of Service Date of Service: 07/16/20
[2020-07-15] MEDS: Famotidine/PF 20 MG/2 ML VIAL IVPUSH ×2 (11:25→20:37)
[2020-07-15 12:01] LABS: Hematocrit 41.8 % (37-47); Hemoglobin 13.5 g/dl (12.0-16.0)
[2020-07-15 12:33] LABS: Anion Gap 14 (12-20); Blood Urea Nitrogen 14 mg/dL (9-16); Calcium 8.9 mg/dL (8.4-10.2); Carbon Dioxide 23 mmol/L (22-29); Chloride 105 mmol/L (96-108); Creatinine Clr Calc Pharmacy 72.6; Estimated Glomerular Filt Rate > 60; Glucose Random 145 mg/dL (60-115); Potassium 4.2 mmol/L (3.3-5.1); Sodium 138 mmol/L (135-145)
[2020-07-15] MEDS: Lactated Ringers 1,000 ML 125 ML IVCONT ×2 (13:41→19:23)
[2020-07-15] MEDS: ceFAZolin Sodium/Dextrose,Iso 2 GM/50 ML PIGGYBACK IV (13:42)
[2020-07-15] MEDS: ondansetron HCL 4 MG/2 ML VIAL IVPUSH (19:31)
[2020-07-15] MEDS: 0.9 % Sodium Chloride Flush 3 ML SYRINGE IVFLUSH (19:33)
[2020-07-15] MEDS: amLODIPine Besylate 5 MG TABLET PO (20:37)
[2020-07-15] MEDS: LORazepam 0.5 MG TABLET PO (20:43)
[2020-07-16] MEDS: ondansetron HCL 4 MG/2 ML VIAL IVPUSH (03:20)
[2020-07-16] MEDS: Lactated Ringers 1,000 ML 125 ML IVCONT (03:20)
[2020-07-16 03:21] VITALS: BP 136/69; PULSE 71; RESP 16; TEMP 36.6; O2SAT 98
[2020-07-16] MEDS: Levothyroxine Sodium 112 MCG TABLET PO (05:48)
[2020-07-16 06:13] LABS: MANUAL DIFF FLAG NO
[2020-07-16 06:32] LABS: Basophils Percent Auto 0.1 % (0-2); Hematocrit 36.9 % (37-47); Imm Gran Abs Auto 0.01 X10*3/uL (0.00-0.03); Imm Gran Pct Auto 0.1 % (0.0-0.4); Mean Corpuscular HGB Conc 32.5 g/dl (31.0-35.0); Mean Platelet Volume 11.2 fL (9.4-12.3); Monocytes Absolute Auto 0.6 X10*3/uL (0.1-1.2); Neutrophils Absolute Auto 7.2 X10*3/uL (2.0-8.3); Neutrophils Percent Auto 81.8 % (45-73); Platelet Count 184 X10*3/uL (160-400); Red Blood Count 4.29 X10*6/uL (4.20-5.50); Red Cell Distribution Width 12.8 % (11.0-16.0); White Blood Count 8.7 X10*3/uL (4.8-10.8)
[2020-07-16 06:47] LABS: Anion Gap 11 (12-20); Blood Urea Nitrogen 10 mg/dL (9-16); Calcium 8.8 mg/dL (8.4-10.2); Carbon Dioxide 28 mmol/L (22-29); Chloride 105 mmol/L (96-108); Creatinine Clr Calc Pharmacy 85.3; Estimated Glomerular Filt Rate > 60; Glucose Random 129 mg/dL (60-115); Potassium 4.3 mmol/L (3.3-5.1); Sodium 140 mmol/L (135-145)
[2020-07-16] MEDS: Famotidine/PF 20 MG/2 ML VIAL IVPUSH (07:38)
[2020-07-16] MEDS: Metoprolol Succinate ER 100 MG TAB.ER.24H PO (07:38)
[2020-07-16 07:57] VITALS: BP 143/59; PULSE 72; RESP 16; TEMP 36.1; O2SAT 97
--- NOTE | 2020-07-16 08:13 | MHC.CM.PN ---
PATIENT IS DISCHARGED HOME - SELF CARE. SHE IS ABLE TO ARRANGE HER TRANSPORTATION HOME. RN AWARE OF PLAN.
[2020-07-16 11:19] VITALS: BP 141/68; PULSE 71; RESP 16; TEMP 36.2; O2SAT 99
--- NOTE | 2020-07-16 13:51 | HO.POSTANES ---
Post Anesthesia Evaluation Post Anesthesia Evaluation Vital Signs: Vital Signs Temp Pulse Resp BP Pulse Ox 07/16/20 11:19 97.1 F 71 16 141/68 H 99 07/16/20 07:57 96.9 F 72 16 143/59 H 97 07/16/20 03:21 97.9 F 71 16 136/69 98 Anesthesia: General Endotracheal-GETA Mental Status: Awake Pain Control: Satisfactory Nausea/Vomiting: None Hydration: Adequate Anesthesia-Related Issues: No Anes. Related Issues
== END 2020-07-16 13:03 | disposition home or self-care (01) | DRG 620 ==
LOC: HO.SSSA 10:57 → HO.S3 11:28
PROVIDERS: Physician Assistant; Psychiatry & Neurology Neurology; Admitting Provider Surgery; PCP Internal Medicine; Visit Provider Surgery
PROC: 0DB64Z3 Excision of Stomach, Percutaneous Endoscopic Approach, Vertical (ICD-10-PCS; CPT 43845; principal; 2020-07-15 07:30)
DX: E66.01 Morbid (severe) obesity due to excess calories (principal); K44.0 Diaphragmatic hernia with obstruction, without gangrene; Z68.36 Body mass index [BMI] 36.0-36.9, adult; Z20.822 Contact with and (suspected) exposure to COVID-19; E03.9 Hypothyroidism, unspecified; K21.9 Gastro-esophageal reflux disease without esophagitis; E11.9 Type 2 diabetes mellitus without complications; I10 Essential (primary) hypertension; J45.909 Unspecified asthma, uncomplicated; F41.9 Anxiety disorder, unspecified; K76.0 Fatty (change of) liver, not elsewhere classified; G47.30 Sleep apnea, unspecified; Z99.89 Dependence on other enabling machines and devices; Z79.899 Other long term (current) drug therapy
CPT/HCPCS: 36415; 80048; 80053; 80061; 82550; 82607; 82784; 82947; 83036; 83525; 84155; 84165; 84439; 84443; 85014; 85018; 85025; 85610; 85652; 85730; 86021; 86038; 86039; 86140; 86334; 86617; 86618; 86850; 86900; 86901; 87635; 88307; 88342; 99024; A4649; J0131; J0690; J1100; J1170; J2250; J2405; J3010

== ENCOUNTER → 2020-07-23 09:01 | Outpatient (BNVA) | payer OTHER, SELFPAY | PROVIDERS: PCP Internal Medicine; Visit Provider Surgery ==

== ENCOUNTER 2021-05-26 19:23 | Emergency (ER) | payer OTHER, SELFPAY ==
--- NOTE | ~2021-05-26 | CT_ITS ---
EXAMINATION: CT HEAD WITHOUT CONTRAST CT CERVICAL SPINE WITHOUT CONTRAST CLINICAL INFORMATION: Fall. COMPARISON: None. TECHNIQUE: Imaging was performed from the skull base to vertex without intravenous administration of contrast. In addition, helical noncontrast CT imaging was acquired through the cervical spine and source images were reviewed along with axial reconstructions and sagittal and coronal MPRs. [This CT examination was performed using dose optimization techniques as appropriate, variously including the following: *Automated exposure control *Adjustment of mA and/or kV according to patient size (this includes techniques or standardized protocols for targeted exams where dose is matched to indication/reason for exam; i.e. extremities or head) *Use of iterative reconstruction technique] DLP: 1103 mGy-cm FINDINGS: HEAD: No intracranial mass, hemorrhage, or midline shift is visualized. The ventricles and sulci are proportional. No extra-axial collections are identified. The paranasal sinuses and mastoid air cells are well aerated. CERVICAL SPINE: There is no evidence of acute cervical spine fracture. Vertebral bodies remain normal in height. Cervical vertebrae have normal alignment. There is multilevel degenerative spondylosis of the cervical spine with disc height narrowing and endplate spurs and facet joint arthrosis Status post thyroidectomy. Limited assessment of the lung apices is unremarkable. CT/CT head/brain wo con IMPRESSION: 1. No acute intracranial pathology. 2. No CT evidence of acute cervical spine fracture or traumatic subluxation
--- NOTE | ~2021-05-26 | CT_ITS ---
EXAMINATION: CT HEAD WITHOUT CONTRAST CT CERVICAL SPINE WITHOUT CONTRAST CLINICAL INFORMATION: Fall. COMPARISON: None. TECHNIQUE: Imaging was performed from the skull base to vertex without intravenous administration of contrast. In addition, helical noncontrast CT imaging was acquired through the cervical spine and source images were reviewed along with axial reconstructions and sagittal and coronal MPRs. [This CT examination was performed using dose optimization techniques as appropriate, variously including the following: *Automated exposure control *Adjustment of mA and/or kV according to patient size (this includes techniques or standardized protocols for targeted exams where dose is matched to indication/reason for exam; i.e. extremities or head) *Use of iterative reconstruction technique] DLP: 1103 mGy-cm FINDINGS: HEAD: No intracranial mass, hemorrhage, or midline shift is visualized. The ventricles and sulci are proportional. No extra-axial collections are identified. The paranasal sinuses and mastoid air cells are well aerated. CERVICAL SPINE: There is no evidence of acute cervical spine fracture. Vertebral bodies remain normal in height. Cervical vertebrae have normal alignment. There is multilevel degenerative spondylosis of the cervical spine with disc height narrowing and endplate spurs and facet joint arthrosis Status post thyroidectomy. Limited assessment of the lung apices is unremarkable. CT/CT cervical spine wo con IMPRESSION: 1. No acute intracranial pathology. 2. No CT evidence of acute cervical spine fracture or traumatic subluxation
[2021-05-26 19:30] VITALS: BP 140/59; PULSE 70; RESP 20; TEMP 37; O2SAT 96; BMI 31.8
[2021-05-26 22:27] VITALS: BP 148/63; PULSE 62; RESP 14; TEMP 36.6; O2SAT 96
--- NOTE | 2021-05-26 23:10 | ED.FALL ---
HPI - Fall General Chief Complaint: Fall Stated Complaint: fall/head inj Time Seen by Provider: 05/26/21 19:29 Source: patient Mode of arrival: ambulatory History of Present Illness HPI Narrative: 60-year-old female who presents after she sustained a fall 4 words down approximately 6 stairs stating that she landed on her right knee both hands but her head still hit the wall. She denies any use of blood thinners and denies any loss of consciousness. She was able to go through her typical day and denies any visual disturbances or inability to form everyday tasks and has been driving without difficulty but came in because she is having head and neck pain for which she is not tried taking any Tylenol or ibuprofen. Related Data Home Medications Medication Instructions Recorded Confirmed amlodipine 5 mg tablet 5 mg PO BEDTIME 03/14/20 07/07/20 escitalopram oxalate 10 mg tablet 10 mg PO DAILY 03/14/20 07/07/20 (Lexapro) levothyroxine 137 mcg capsule 112 mcg PO QAM 03/14/20 07/07/20 metoprolol succinate 200 mg 100 mg PO BID 03/14/20 07/07/20 tablet,extended release 24 hr pantoprazole 40 mg tablet,delayed 40 mg PO DAILY 03/14/20 07/07/20 release albuterol sulfate 90 mcg/actuation 2 puff INHALATION Q6H PRN 03/28/20 07/07/20 aerosol inhaler (ProAir HFA) lorazepam 0.5 mg tablet 0.5 mg PO BEDTIME PRN 03/28/20 07/07/20 Previous Rx's Medication Instructions Recorded ondansetron HCl 4 mg tablet 4 mg PO Q12H #20 tab 07/07/20 (Zofran) sucralfate 100 mg/mL oral 10 ml PO BID #400 ml 07/07/20 suspension Allergies Allergy/AdvReac Type Severity Reaction Status Date / Time epinephrine [EPINEPHRINE] Allergy Severe throat Verified 07/23/20 09:08 closes oxycodone [OXYCODONE] Allergy Severe severe Verified 07/23/20 09:08 itching esomeprazole [From NEXIUM] AdvReac Mild nausea/head Verified 07/23/20 09:08 ache omeprazole [From PRILOSEC] AdvReac Mild nausea/head Verified 07/23/20 09:08 ache Review of Systems Review of Systems: Pertinent positives and negatives as stated in HPI 10 point review of systems is otherwise negative. [facility] Past Medical History Source: nursing notes reviewed Medical History Arthritis Asthma Back pain BMI 37.0-37.9, adult BMI 38.0-38.9,adult BMI 39.0-39.9,adult COVID-19 vaccine administered Depression Diabetes GERD (gastroesophageal reflux disease) H. pylori infection History of anxiety HTN (hypertension) Knee pain Low back pain Major depressive disorder, single episode, moderate Obesity Sleep apnea Steatosis, liver SVT (supraventricular tachycardia) Thyroid disease Surgical History H/O thyroidectomy History of sleeve gastrectomy History of surgery on wrist Hx of colonoscopy Hx of endoscopy Hx of hysterectomy S/P panniculectomy Family History Family History Mother No problems noted. Father Hypertension Brother No problems noted. 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 GENERAL: Well developed, well nourished, in no acute distress. HEAD: Normocephalic/atraumatic, but tenderness to palpation over the left parietal without defect EYES: PERRLA, EOMI intact without pain, no nystagmus EARS: Ext canals without abnormality, TMs non-bulging and non-erythematous NOSE: Nares patent bilateral OROPHARYNX: no oral lesions noted, posterior pharynx clear NECK: Supple, no adenopathy, no midline cervical spine tenderness but tenderness palpation of the paraspinal across shoulders LUNGS: Normal breath sounds. No adventitious sounds or accessory muscle use. SpO2<96> CARDIOVASCULAR: Regular rate and rhythm without noted murmurs ABDOMEN: Soft, non-tender, non-distended with bowel sounds. MUSCULOSKELETAL: No tenderness, deformities, or effusions noted on gross inspection. EXTREMITIES: No cyanosis, clubbing or edema; there is a small abrasion to the right knee but otherwise no erythema/induration/edema or defect, bilateral hands without abrasions or deformity hand director critical care 5/5 symmetrical SKIN: Inspection of the skin reveals no rashes NEUROLOGIC: Alert and oriented x 4. Strength and sensation to light touch were grossly intact x 4. Course Course Course Narrative: 60-year-old female with fall and on clinical evaluation there are no acute findings, patient provided with combination analgesics and on review of all imaging studies there are no acute fractures or dislocations. Patient informed of all results and otherwise discharged home in stable condition. Discharge Plan Discharge Clinical Impression: Fall, Musculoskeletal pain Patient Disposition: Home, Self-Care Instructions: Fall Prevention (ED), Musculoskeletal Pain (ED) Additional Instructions: 1. Tylenol 1000 mg, orally, every 6 hours as needed for pain control. Do not exceed 4000 mg within 24 hours. Only use ibuprofen, 400 mg for breakthrough pain given your history of bariatric surgery. 2. Lidocaine patch, apply to area of maximal tenderness as directed on the outside packaging. 3. Trial either heat or ice and whichever gives you the most relief, stick with this for additional symptom relief. Return to the ER for worsening symptoms. Prescriptions: No Action sucralfate 100 mg/mL suspension 10 ml PO BID Qty: 400 2RF ondansetron HCl [Zofran] 4 mg tablet 4 mg PO Q12H Qty: 20 0RF metoprolol succinate 200 mg tablet extended release 24 hr 100 mg PO BID 0RF Rx Instructions: a.m. dose taken late morning amlodipine 5 mg tablet 5 mg PO BEDTIME 0RF levothyroxine 137 mcg capsule 112 mcg PO QAM 0RF pantoprazole 40 mg tablet,delayed release (DR/EC) 40 mg PO DAILY 0RF escitalopram oxalate [Lexapro] 10 mg tablet 10 mg PO DAILY 0RF Rx Instructions: takes late morning albuterol sulfate [ProAir HFA] 90 mcg/actuation HFA aerosol inhaler 2 puff inhalation Q6H PRN (Reason: Shortness Of Breath Or Wheezing) 0RF lorazepam 0.5 mg tablet 0.5 mg PO BEDTIME PRN (Reason: Anxiety) 0RF
[2021-05-26] MEDS: Ketorolac Tromethamine 15 MG/ML VIAL IM (23:26)
[2021-05-26] MEDS: Acetaminophen 325 MG TABLET 975 MG PO (23:26)
== END 2021-05-26 23:21 | disposition home or self-care (01) ==
PROVIDERS: Emergency Provider Student in an Organized Health Care Education/Training Program
DX: M79.10 Myalgia, unspecified site (principal); M54.2 Cervicalgia; I10 Essential (primary) hypertension; E11.9 Type 2 diabetes mellitus without complications; Z98.84 Bariatric surgery status
CPT/HCPCS: 70450; 72125; 96372; 99284; J1885

== ENCOUNTER 2022-11-15 08:12 | Outpatient (AMB) | payer OTHER, SELFPAY ==
--- NOTE | 2022-11-15 13:10 | A.OFFVIS_ITS ---
Intake VS Expanded 11/15/22 13:12 Height 5 ft 3 in Weight 198 lb BMI 35.1 Intake Visit Reasons: TV 2.5YR PO LSG 07/15/20 Allergies epinephrine [EPINEPHRINE] Allergy (Severe, Verified 10/08/21 13:50) throat closes oxycodone [OXYCODONE] Allergy (Severe, Verified 10/08/21 13:50) severe itching esomeprazole [From NEXIUM] Adverse Reaction (Mild, Verified 10/08/21 13:50) nausea/headache omeprazole [From PRILOSEC] Adverse Reaction (Mild, Verified 10/08/21 13:50) nausea/headache HPI TV 2.5YR PO LSG 07/15/20 HPI Details Start time: 1.08pm, End time: 1.38pm ?I spent 25 minutes speaking with the patient on the phone plus an additional 5 minutes reviewing and updating records for a total of 30 minutes HPI Comments History of Present Illness Details Was out of the program for 2 years as she lost her daughter. Has gained 31 lbs Wakes up: 6.30am, Sleeps: 11pm Has a Gym membership [facility] Medical History Arthritis Asthma Back pain BMI 37.0-37.9, adult BMI 38.0-38.9,adult BMI 39.0-39.9,adult COVID-19 vaccine administered Depression Diabetes GERD (gastroesophageal reflux disease) H. pylori infection History of anxiety HTN (hypertension) Knee pain Low back pain Major depressive disorder, single episode, moderate Obesity Sleep apnea Steatosis, liver SVT (supraventricular tachycardia) Thyroid disease Surgical History H/O thyroidectomy History of sleeve gastrectomy History of surgery on wrist Hx of colonoscopy Hx of endoscopy Hx of hysterectomy S/P panniculectomy Family History Mother No problems noted. Father Hypertension Brother No problems noted. Brother Hypertension Daughter Drug abuse Daughter Anxiety Drug abuse Social History Household Members: Other Household Members Other:: grand daughter Housing: Condominium Are you a primary md do resident urgent care to a significant other at home: Yes Do you presently have visiting nurse or other home services: No Alcohol intake: never Years Smoked: 34 Assessment & Plan Assessment & Plan (1) Obesity: Code(s): E66.9 - Obesity, unspecified Qualifiers: Obesity classification: unspecified obesity classification Plan: 1. Please change nutritional plan to one Celebrate REBUILD shake with ONE scoop in 8oz coconut milk at 8am-10am, one Celebrate protein bar at 11am-1pm, one Celebrate REBUILD shake with ONE scoop in 8oz coconut milk at 2pm-4pm, HALF Celebrate protein bar at 5pm-6pm, dinner at 7pm (6 forks of protein and 6 forks of salad or vegetables) AND another HALF protein bar at 9pm-10pm. 2. Each shake would be drunk slowly, like coffee in a period of 2 hours. 3. Cut each bar in 4 pieces and eat each piece in 30min ?to make each bar last 2 hours. 4. I emphasized the importance of measuring accurately the food portion and measure it when serving the food in plate 5. The meal portions include 6 full-size forks of meat and 6 full-size forks of salad. You always eat the meat portion but you can replace up to 3 forks for salad/vegetables with rice, potatoes or pasta, or a fruit ?if you like. The less you do it the better weight loss will be. 6. One full-size fork is what it can be scooped on the fork without falling aside and not what can be bit with the fork. Use regular forks like those you find in a typical restaurant. 7. Please send me weight measurements weekly on Tuesday mornings 8. Start rowing machine for 100 calories, 5 days per week 9. ?Start treadmill with an incline of 2.0 and speed of 3.0. Increase incline by 1 every 3 min to a max incline of 8.0, stay 3min at 8.0 and then return to 2.0 and repeat same steps until calorie goal is met. 10. Goal is to burn 2000 calories per week on exercise, which means either 300 calories daily, or 400 calories 5 days per week, or 500 calories 4 days per week, or 650 calories 3 days per week. (2) BMI 35.0-35.9,adult: Code(s): Z68.35 - Body mass index [BMI] 35.0-35.9, adult Telehealth Telehealth Location of provider rendering services: practice address Location of patient: address on file Patient Identification confirmed using: Name, : Yes Telehealth method: voice only Patient verbally consented to treatment: Yes Patient verbally consented to billing insurance company: Yes Patient informed of any privacy concerns related to visit: Yes Minutes spent on Phone/Video with Pt.: 30 Coding Level of Care Code Tele Est Pt Level 4 (25876) Diagnoses Obesity E66.9 Obesity classification: unspecified obesity classification BMI 35.0-35.9,adult Z68.35 Time Spent (min) 30
[2022-11-15 13:12] VITALS: BMI 35.1
== END 2022-11-15 13:39 | disposition home or self-care (01) ==
PROVIDERS: PCP Internal Medicine; Visit Provider Surgery
DX: E66.9 Obesity, unspecified (principal); Z68.35 Body mass index [BMI] 35.0-35.9, adult; Z90.3 Acquired absence of stomach [part of]; Z98.84 Bariatric surgery status
CPT/HCPCS: 99443

== ENCOUNTER → 2022-11-15 08:12 | Outpatient (BNVA) | payer OTHER, SELFPAY | PROVIDERS: PCP Internal Medicine; Visit Provider Surgery ==

== ENCOUNTER 2024-04-05 09:35 | Outpatient (AMB) | payer OTHER, SELFPAY ==
--- NOTE | 2024-04-05 09:26 | A.SPINEOV_ITS ---
Vital Signs 04/05/24 09:47 Height 5 ft 3 in Weight 192 lb BMI 34.0 Intake Visit Reasons: consult/back pain Intake Note: Ms. Harden is here today c/o Right sided low back pain that radiates down the right leg causing numbness and tingling. Correction Worker Required: No Allergies epinephrine [EPINEPHRINE] Allergy (Severe, Verified 04/05/24 09:49) throat closes oxycodone [OXYCODONE] Allergy (Severe, Verified 04/05/24 09:49) severe itching esomeprazole [From NEXIUM] Adverse Reaction (Mild, Verified 04/05/24 09:49) nausea/headache omeprazole [From PRILOSEC] Adverse Reaction (Mild, Verified 04/05/24 09:49) nausea/headache Assessment & Plan Assessment & Plan (1) Lumbar radiculopathy: Code(s): M54.16 - Radiculopathy, lumbar region Category: Medical Plan Hemalatha is a pleasant 63 year old female who is self referred to us today after being evaluated in [facility] ED about a month ago for low back pain and severe right leg pain. She reports that this began about mid January without any known inciting incident. When describing her pain she states it starts in her low back shoots over her posterior buttocks goes down her lateral thigh and terminates near the lateral calf. She does associate some numbness/tingling with the pain, and states at times she has difficulty feeling her toes in both feet. In addition to this, she reports she has been evaluated by our colleagues at [facility] who have recommended right-sided L5 transforaminal epidural steroid injection. She is waiting for her insurance to be processed, and for a date for this injection with them. Hemalatha reports that she has been to physical therapy in the past, but did not find it to be helpful and only worsened her pain. She feels that her right leg pain is severely impacting her life; she is currently working from home unable to drive into [place] for work due to the pain. She has a very difficult time sleeping at night and needs to sleep on her left side utilizing multiple pillows to position herself to not be in severe pain. She is taking ibuprofen, gabapentin, and muscle rub/cream in an effort to help mitigate the pain. She recently completed a course of prednisone for the pain. She has attempted primary care sales representative, and acupuncture in an effort to help mitigate the pain with no meaningful relief. PMH: History of partial hysterectomy, right hand and wrist reconstruction, cholecystectomy, bariatric sleeve surgery, and thyroidectomy. Hypertension, recently diagnosed diabetes type 2, hypothyroidism, depression, fibromyalgia. Social hx: Patient does not smoke, reports no substance use. Medications: Metoprolol, levothyroxine, escitalopram, amlodipine, gabapentin, metformin. Allergies: Nexium, Omeprazole. Physical exam: The patient has 5/5 strength in her upper and lower extremities. She ambulates with an antalgic gait favoring the left side, she also sits with the bulk of her weight on the left side. Her gait is non spastic. She reports sensational deficits over the right lateral calf compared to the left. Her bilateral patellar reflexes are absent. The rest of her reflexes are 2+ intact. (+) right-sided straight leg raise, (-) Kamara's, (-) clonus. Imaging review: MRI of the lumbar spine completed at [facility] shows severe right-sided L5 foraminal stenosis secondary to a disc protrusion at L5-S1. Impression: Hemalatha is a pleasant 63-year-old female comes in today with a chief complaint of low back pain and shooting pain down her right lower extremity. She reports she has had ?low back pain for years? but recently started developing the shooting pain down her right lower extremity. This has been significantly debilitating for the patient, causing her to lose sleep, loose time at work, and has left her largely unable to complete her ADLs. She has been evaluated in the hospital for this, has obtained multiple different types of imaging, and is currently being scheduled for a right-sided transforaminal epidural steroid injection with our colleagues at [facility]. I believe this is a reasonable treatment approach for this issue. The numbness and tingling in her toes bilaterally alongside the bilateral absent patellar reflexes is highly suspicious for a component of peripheral neuropathy accompanying this lumbar radiculopathy. Due to the patient's obvious distress, I will send her in a prescription for lidocaine patches, a muscle relaxer, and ibuprofen. She reports taking ibuprofen at home, but states that the 800 mg ibuprofen work better for her. I will send her in a prescription for this to be taken once daily as she should not add extra stress onto her kidneys with her new found diagnosis of diabetes. She understands the risks/benefits of taking this medication. I would like Hemalatha to follow up with our office after her injection to discuss either continued management with [facility], or surgical intervention to resolve her problem, which would likely entail a right-sided L5 foraminotomy. The total time spent with this visit with this patient was 45 minutes reviewing history, physical exam, MRI imaging review, and implementation of treatment plan or further diagnostic testing Gilmar Palacio MD,PhD [facility] Orders: Orders PT Evaluation and Treatment Today M54.16 - Radiculopathy, lumbar region Medications: New lidocaine 5% leave on most painful area for up to 12 hrs 1 patch topical DAILY 30 ea 0RF Pain baclofen 10 mg PO TID 30 tabs 0RF muscle spasms ibuprofen Take sparingly 800 mg PO DAILY PRN 30 tabs 0RF pain Coding Level of Care Code New Pt Level 4 (21675) Diagnoses Lumbar radiculopathy M54.16
[2024-04-05 09:47] VITALS: BMI 34.0
--- OUTSIDE RECORDS SUMMARY | 2024-04-05 10:06 | XMS_ITS | Clinical Summary ---
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 2 Active albuterol (PROAIR HFA,VENTOLIN HFA) 90 mcg inhaler INHALE 1 PUFF EVERY 4 HOURS NEEDED FOR WHEEZING 2 Active amLODIPine (NORVASC) 5 mg tablet Take 5 mg by mouth once a day. 2 Active metoprolol succinate XL (TOPROL XL) 100 mg tablet Take 100 mg by mouth 2 times a day. 2 Active benzonatate (TESSALON) 200 mg capsule Take 200 mg by mouth 3 times a day. 2 Active cyclobenzaprine (FLEXERIL) 10 mg tablet PLEASE SEE ATTACHED FOR DETAILED DIRECTIONS [address] (PROTONIX) 40 mg tablet Take 40 mg by mouth once a day. 2 Active levothyroxine (SYNTHROID, LEVOTHROID) 112 mcg tablet Take 112 mcg by mouth once a day. 2 Active LORazepam (ATIVAN) 0.5 mg tablet Take 0.5 mg by mouth daily as needed. 2 Active escitalopram (LEXAPRO) 10 mg tablet Take 10 mg by mouth once a day. 2 Active Active Problems Problem Noted Date Diagnosed Date Chronic bilateral low back pain with bilateral s ciatica 04/07/2022 Social History Tobacco Use Types Packs/Day Years Used Date Smoking Tobacco: Never Assessed Comments Unknown Sex and Gender Information Value Date Recorded Sex Assigned at Female 04/04/2022 7:23 PM EST Legal Sex Female 8:48 AM EDT Gender Identity Female 04/04/2022 7:23 PM EST Sexual Orientation Straight 04/04/2022 7: 23 PM EST Plan of Treatment Health Maintenance Due Date Last Done Comments Cervical Cancer Screening 1959 Cologuard 1959 Colon Cancer Screening 1959 Colonoscopy 1959 FOBT / Fit Test 1959 HIV Screening 1959 HPV and Pap Smear 1959 Hepatitis C Screening 1959 Pap Smear 1959 Sigmoidoscopy 1959 Pneumococcal Vaccine: Pediatric (0-5 Years) and At-Risk Patients (6-50 Years) (1 of 2 - PCV) 08/27/1965 Mammogram 1999 Zoster Vaccines (2 of 3) 09/13/2012 07/19/2012 RSV Vaccine (60+ years old a nd patients) (1 - Risk 60-74 years 1-dose series) 2019 DTaP,Tdap,and Td Vaccines (2 - Td or Tdap) 07/19/2022 07/19/2012 COVID-19 Vaccine (4 - 2023-2 5 season) 2023 01/27/2021, 05/26/2020, 05/02/2020 Influenza Vaccine (#1) 2023 2, 03/07/2019 Alcohol/Substance Use Screening 02/22/2024 Depression Screening and Follow-Up 02/22/2024 Social Drivers of Health Annual Screening 02/22/2024 Hepatitis B Vaccines Aged Out No long er eligible based on patient's age to complete this topic Insurance [employer] Care Teams Wood 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
--- OUTSIDE RECORDS SUMMARY | 2024-04-05 10:06 | XMS_ITS | Patient Health Record ---
Author Organization [facility] Address [address] [place] [address] Care Team Providers Care Purchasing Expeditor Name Role Phone Danna Gomez Primary Care Provider Unavailabl e Allergies Allergen (clinical drug ingredient) Drug/Non Drug Allergy documented on EMR Reaction Allergy Type Onset Date Status EpiPen Unknown Drug Allergy Active esomeprazole Nexium Unknown Drug Allergy Acti ve oxycodone Oxycodone HCl Unknown Drug Allergy Act lyndsey pantoprazole Pantoprazole Sodium Unknown Drug Allergy Active acetaminophen / oxycodone Percocet Unknown Drug Allergy Active lansoprazole Prevacid Unknown Drug Allergy Acti ve Latex Latex Unknown Allergy Active Reason For Referral No Information Medications Medication SIG (Take, Route, Frequency, Duration) Notes Start Date End Date Status Escitalopram Oxalate 10 MG 1 tablet Oral ly Once a day Active Vitamin D Active LORazepam 0.5 MG 1 tablet at bedtime as needed Orally Once a day prn Active Levothyroxine Sodium 175 MCG 1 tablet in the morning on an empty stomach Orally Once a day Active Pantoprazole Sodium 40 MG 1 tablet Orall y Once a day Active Metoprolol Succinate ER 100 MG 1 tablet Orally bid Active Lidocaine 5 % 1 patch remove after 12 hours Externally Once a day for 30 days 01/02/2020 Active amLODIPine Besylate 5 MG 1 tablet Orally Once a day Active Albuterol Sulfate 108 (90 Base) MCG/ACT 1 puff as needed Inhalation every 4 hrs Active Citracal Maximum Act lyndsey Problems Problem Type SNOMED Code ICD Code Onset Dates Problem Status W/U Status Risk Notes Problem 72093067 Type 2 diabetes mellitus with other diabetic neurological complication (E11.49) Active confirmed Problem 278072210 Lumbar radiculopathy, right (M54.16) Active confirmed Problem 591877555 History of thyroidectomy (Z90.09) Active confirmed Plan Of Treatment No Information Insurance Providers Payer Name Payer Address Payer Phone Subscriber Number Group Number Insured Name Patient Relationship to Insured Coverage Start Date Coverage End Date [facility] [address] [place] [id number] [phone] [id number] Hemalatha Andrews Self - patient is the insured Medical (General) History Medical History History ICD Code Abnormal liver enzymes Allergic rhinitis Anxiety Arthralgia of multiple sites Benign familial tremor Chest pain Diverticulosis Dyspnea on exertion Fatigue Historical of helicobacter pylori infect ion Hyperlipidemia Hypertension Internal hemorrhoids Left knee pain Limb cramps Myalgia Nontoxic multinodular goiter Obesity Obstructive sleep apnea papillary microcarcinoma of thyroid Supraventricular tachycardia, paroxysmal Tremor Type 2 diabetes mellitus Urinary incontinence Vitamin d deficiency
--- OUTSIDE RECORDS SUMMARY | 2024-04-05 10:06 | XMS_ITS | Referral Summary ---
Author Organization [facility] Address [address] [place] [address] Care Team Providers Care Drain Cleaner Plumber Name Role Phone Danna Gomez Primary Care Provider [phone] Allergies No known active allergies Medications ibuprofen [...] 7: 23 PM EST Plan of Treatment Not on file Insurance [facility] Care Teams Drain Cleaner Plumber Relationship Specialty Start Date End Date Danna Gomez [address] [place] [id number] PCP - General Internal Medicine 12/15/21
--- OUTSIDE RECORDS SUMMARY | 2024-04-05 10:06 | XMS_ITS | Encounter Summary ---
Author Organization [facility] Address [address] [place] [address] Care Team Providers Care Clinical Transformation Specialist Name Role Phone LataDanna granda Primary Care Provider [phone] Reason for Visit * Reason Onset Date Comments Multiple Scelorisi 01/07/2022 Encounter Details Date Type Department Care Team (Late st Contact Info) Description 01/07/2022 Telephone [facility] Central Scheduling Department [address] [place] [id number] Telephone Intake, Staff Multiple Scelorisi Social History Tobacco Use Types Packs/Day Years Used Date Smoking Tobacco: Never Assessed Comments Unknown Sex and Gender Information Value Date Recorded Sex Assigned at Female 04/04/2022 7:23 PM EST Legal Sex Female 8:48 AM EDT Gender Identity Female 04/04/2022 7:23 PM EST Sexual Orientation Straight 04/04/2022 7: 23 PM EST documented as of this encounter Miscellaneous Notes * Telephone Encounter - Melody Rouse - 01/07/2022 9:17 AM EST Pt called at 9:17 on 01/07 and said that according to her GPS she is running 10 minutes late for her appt documented in this encounter Plan of Treatment Not on file documented as of this encounter Visit Diagnoses Not on filedocumented in this encounter Care Teams Clinical Transformation Specialist Relationship Specialty Start Date End Date Danna Gomez [address] [place] [address] PCP - General Internal Medicine 12/15/21 documented as of this encounter
--- OUTSIDE RECORDS SUMMARY | 2024-04-05 10:07 | XMS_ITS | Clinical Summary ---
Author Organization [facility] Address [address] [place] [address] Phone Care Team Providers Care Oracle Distribution Consultant Name Role Phone Danna Gomez MD Primary Care Provider [phone] Social History Tobacco Use Types Packs/Day Years Used Date Smoking Tobacco: Never Assessed Comments Unknown Sex and Gender Information Value Date Recorded Sex Assigned at Not on file Legal Sex Female 4:37 PM EST Gender Identity Not on file Sexual Orientation Not on file Plan of Treatment Health Maintenance Due Date Last Done Comments Breast Cancer Screening 1960 DTaP,Tdap,and Td Vaccines (1 - Tdap) 08/27/1978 Cervical Cancer Screening: P ap Smear 08/27/1980 Pneumococcal Vaccine: 50+ Ye ars (1 of 1 - PCV) 08/27/2009 Zoster Vaccines (1 of 2) 08/27/2009 Colorectal Cancer Screening: Colonoscopy 01/20/2022 Depression Screening 01/20/2022 HIV Screening 01/20/2022 Hepatitis C Screening 01/20/2022 Social Influencers of Health Screening 01/20/2022 COVID-19 Vaccine ( - 2023-2 5 season) 2023 Influenza Vaccine (#1) 2023 RSV Immunization Patients 60 + Years Old (1 - 1-dose 75+ series) 08/27/2034 HIB Vaccines Aged Out No longer eligi ble based on patient's age to complete this topic HPV Vaccines Aged Out No longer eligi ble based on patient's age to complete this topic Hepatitis A Vaccines Aged Out No long er eligible based on patient's age to complete this topic Hepatitis B Vaccines Aged Out No long er eligible based on patient's age to complete this topic IPV Vaccines Aged Out No longer eligi ble based on patient's age to complete this topic MMR Vaccines Aged Out No longer eligi ble based on patient's age to complete this topic Meningococcal ACWY Vaccine Aged Out N o longer eligible based on patient's age to complete this topic Meningococcal B Vacine Aged Out No lo nger eligible based on patient's age to complete this topic Pneumococcal Vaccine: Pediat rics (0 to 5 Years) and At-Risk Patients (6 to 64 Years) Aged Out No longer eligible b ased on patient's age to complete this topic RSV Immunization Patients Un isa 20 months Aged Out No longer eligible b ased on patient's age to complete this topic Varicella Vaccines Aged Out No longer eligible based on patient's age to complete this topic Insurance [place] [id number] [facility] [place] [id number] Care Teams Oracle Distribution Consultant Relationship Specialty Start Date End Date Danna Gomez MD [address] [place] [address] PCP - General 06/09/23
== END 2024-04-05 10:31 | disposition home or self-care (01) ==
PROVIDERS: PCP Internal Medicine; Visit Provider Physician Assistant
DX: M54.16 Radiculopathy, lumbar region (principal)
CPT/HCPCS: 99204

== ENCOUNTER 2024-09-20 15:36 | Outpatient (AMB) | payer OTHER, SELFPAY ==
--- NOTE | 2024-09-20 15:37 | A.OFFVIS_ITS ---
VS Expanded 09/20/24 15:47 BP 164/77 H Blood Pressure Location Rt brachial Blood Pressure Position Sitting Pulse 84 Pulse Source Pulse Oximeter Temp 96.3 F L Temperature Source Temporal Artery Scan Pulse Oximetry 96 Oxygen Delivery Method Room Air Height 5 ft 2 in Weight 187 lb 3.2 oz BMI 34.2 Body Fat % 42.3 Body Fat Mass 79.2 Fat Free Mass 108.0 Visceral Fat Rating 2.0 Body Water % 40.8 Body Water Mass 76.2 Muscle Mass/Score 102.3 Basal Metabolic Rate/Score 1,491 Intake Visit Reasons: (OV) PO LSG 07/15/20 Allergies epinephrine (EPINEPHRINE) Allergy (Severe, Verified 09/20/24 15:41) throat closes oxycodone (OXYCODONE) Allergy (Severe, Verified 09/20/24 15:41) severe itching esomeprazole (From NEXIUM) Adverse Reaction (Mild, Verified 09/20/24 15:41) nausea/headache omeprazole (From PRILOSEC) Adverse Reaction (Mild, Verified 09/20/24 15:41) nausea/headache Medication List - Last Reconciled 09/20/24 by MARIANNE Walter duloxetine 20 mg PO BID ibuprofen 800 mg PO DAILY PRN levothyroxine 112 mcg PO QAM lidocaine 5% 1 patch topical DAILY lorazepam 0.5 mg PO BEDTIME PRN metoprolol succinate ER 100 mg PO DAILY HPI Comments Details: This?is a?64?yo F who is s/p LSG 07/15/2020. Weight loss of 10.8lbs since last OV in Oct 2022. No complaints of nausea, emesis, abdominal pain or reflux, or constipation. Recently had several surgeries- cholecystectomy, shoulder surgery x2 Dr. Serrano ([facility]). Now participating in a mental health program to help with grief/depression, she finds this helpful. Previously on metformin but was able to come off. Present meal plan includes: 2 protein shakes dinner meal- salmon and string beans continues to watch her portion sizes sometimes will eat popcorn, rice or sweet potatoes Exercise routine includes: less recently due to back problems did get a dog so does get out to walk the dog [facility] Medical History (Updated 04/05/24 @ 09:31 by MARIANNE Mcknight) Steatosis, liver COVID-19 vaccine administered Arthritis History of anxiety Depression Sleep apnea Thyroid disease Diabetes GERD (gastroesophageal reflux disease) HTN (hypertension) BMI 37.0-37.9, adult BMI 38.0-38.9,adult BMI 39.0-39.9,adult Obesity Major depressive disorder, single episode, moderate Back pain Knee pain Asthma H. pylori infection SVT (supraventricular tachycardia) Low back pain Surgical History (Updated 09/20/24 @ 15:44 by Marion Motley CMA) Hx of shoulder surgery History of sleeve gastrectomy History of surgery on wrist H/O thyroidectomy S/P panniculectomy Hx of hysterectomy Hx of endoscopy Hx of colonoscopy Family History Mother No problems noted. Father Hypertension Brother No problems noted. Brother Hypertension Daughter Drug abuse Daughter Anxiety Drug abuse Social History Household Members: Other Household Members Other:: grand daughter [facility] Are you a primary medicare contact specialist to a significant other at home: Yes Do you presently have visiting nurse or other home services: No Alcohol intake: never Comment: chronic Years Smoked: 34 Physical Exam Vital Signs: Last Vital Signs Temp 96.3 F L 09/20/24 15:47 Pulse 84 09/20/24 15:47 BP 164/77 H 09/20/24 15:47 Pulse Ox 96 09/20/24 15:47 Oxygen Delivery Method Room Air 09/20/24 15:47 BMI result Body Mass Index 34.2 Assessment & Plan Assessment & Plan (1) Obesity: Code(s): E66.9 - Obesity, unspecified Category: Medical Qualifiers: Obesity classification: unspecified obesity classification (2) S/P laparoscopic sleeve gastrectomy: Code(s): Z98.84 - Bariatric surgery status Category: Surgical Plan Pt is interested in starting GLP1. She has HTN and a history of diabetes. Reviewed contraindications, discussed dosing. Discussed need for adequate protein intake while on GLP1s as well as frequent communication with our office. Pt will check in with me weekly and is aware that subsequent Rx will be dependent on frequent communication. Also gave [employer] ketty info and encouraged her to follow a good high protein meal plan. If she continues on naproxen she will let me know and I will give her PPI prophylaxis. Labs ordered. RTC 3 months. Orders: Orders Vitamin D 25-OH Total Today Z98.84 - Bariatric surgery status TSH reflex Free T4 Today Z98.84 - Bariatric surgery status C Reactive Protein Today Z98.84 - Bariatric surgery status Vitamin A Today Z98.84 - Bariatric surgery status Complete Blood Count Auto Diff Today Z98.84 - Bariatric surgery status Lipid Panel Today Z98.84 - Bariatric surgery status IRON PROFILE Today Z98.84 - Bariatric surgery status Ferritin Today Z98.84 - Bariatric surgery status Vitamin B1 Today Z98.84 - Bariatric surgery status Zinc Today Z98.84 - Bariatric surgery status Vitamin B12 and Folate Today Z98.84 - Bariatric surgery status Comprehensive Met. Panel Today Z.84 - Bariatric surgery status Hemoglobin A1c Today Z98.84 - Bariatric surgery status Insulin Today Z98.84 - Bariatric surgery status Medications: New Zepbound (tirzepatide (weight loss)) for 4 weeks 2.5 mg (0.5 mL) subcut QWEEK 2 mL 0RF NS
--- OUTSIDE RECORDS SUMMARY | 2024-09-20 15:39 | XMS_ITS | Encounter Summary ---
Author Organization [facility] Address [address] [place] [address] Care Team Providers Care Solar Installation Foreman Name Role Phone LataDanna granda Primary Care Provider [phone] Reason for Visit * Reason Onset Date Comments Multiple Scelorisi 01/07/2022 Encounter Details Date Type Department Care Team (Late st Contact Info) Description 01/07/2022 Telephone [facility] Central Scheduling Department [address] [place] [address] Telephone Intake, Staff Multiple Scelorisi Social History [...] on filedocumented in this encounter Care Teams Solar Installation Foreman Relationship Specialty Start Date End Date Danna Gomez [address] [place] [address] PCP - General Internal Medicine 12/15/21 documented as of this encounter
--- OUTSIDE RECORDS SUMMARY | 2024-09-20 15:39 | XMS_ITS | Patient Health Record ---
Author Organization [facility] Address [address] [place] [address] Care Team Providers Care Preschool Aide Name Role Phone Danna Gomez MD Primary Care Provider Unavail able Alphonse Clifton Unavailable [phone] Allergies Allergen (clinical drug ingredient) Drug/Non Drug Allergy documented on EMR Reaction Allergy Type Onset Date Status EPINEPHrine Unknown Drug Allergy Activ e Reason For Referral No Information Medications Medication SIG (Take, Route, Fr equency, Duration) Notes Start Date End Date Status Protonix 40 MG 1 tablet Orally Once a day 09/05/19 14 Active Drysol 20 % as directed Externally 03/02/2011 Not-Taking Lexapro 10 mg Not-Ta gwen Zantac prn Not-Takin g Toprol XL 75 mg 1 tablet Orally Once a day; Duration: 30 day(s) Active Social History Tobacco use other than smoking: Question Answer Notes Are you an other tobacco user? No Problems Problem Type SNOMED Code ICD Code Onset Dates Problem Status W/U Status Risk Notes Problem Information temporarily unavailable Ulcer of Other Part of Foot (707.15) Active confirmed Problem Information temporarily unavailable Pain in Limb (729.5) Active confirmed Problem Information temporarily unavailable Arthritis - Degenerative (719.97) Active confirmed Problem Information temporarily unavailable Neuralgia - Neuritis (729.2) Active confirmed Problem Information temporarily unavailable Flat Foot, Congenital (754.61) Active confirmed Problem Information temporarily unavailable Pain in Limb (729.5) Active confirmed Plan Of Treatment Pending Test Test Name Order Date X ray : Foot, left 2V 01/29/2011 X ray : Foot, left 2V 09/04/2013 X ray : Foot, right 2V 09/04/2013 X ray : Foot, right 2V 01/29/2011 [id number] Destruction, 1-14 01/29/2011 [id number] Destruction, 1-14 03/02/2011 96429- Debride <25 sq cm 09/04/2013 86511- Debride <25 sq cm 10/19/2013 42960, J0702- Neuroma/Injection 10/20/19 14 Insurance Providers Payer Name Payer Address Payer Phone Subscriber Number Group Number Insured Name Patient Relationship to Insured Coverage Start Date Coverage End Date [facility] [address] [place], [place] [id number] Hemalatha Andrews Self - patient is the insured Medical (General) History Medical History History ICD Code back, hip, knee pain broken bones headaches/migraines hypertension thyroid disorder anxiety Surgical History Surgery Date(Month/Year) partial hysterectomy 1995 wrist surgery 2001, 2002
--- OUTSIDE RECORDS SUMMARY | 2024-09-20 15:40 | XMS_ITS | Clinical Summary ---
Author Organization [facility] Address [address] [place] [address] Phone Care Team Providers Care Access Developer Name Role Phone Danna Gomez MD Primary Care Provider [phone] Social History Tobacco Use Types Packs/Day Years [...] 2) 08/27/2009 Colorectal Cancer Screening: Colonoscopy 01/20/2022 Hepatitis C Screening 01/20/2022 Osteoporosis Screening (Bone Density Screening) 01/20/2022 Social Influencers of Health Screening 01/20/2022 COVID-19 Vaccine ( - 2023-2 5 season) 2023 Depression Screening 02/22/2024 Falls Risk Assessment 08/27/2024 Influenza Vaccine (#1) 2024 RSV Immunization Adult Patie nts (1 - 1-dose 75+ series) 08/27/2034 HIB [...] age to complete this topic Meningococcal B Vaccine Aged Out No l onger eligible based on patient's age to complete this topic RSV Immunization Patients Un isa 20 months Aged Out No longer eligible b ased on patient's age to complete this topic Varicella Vaccines Aged Out No longer eligible based on patient's age to complete this topic Insurance [address] [place] [id number] [facility] [place] [id number] Care Teams Access Developer Relationship Specialty Start Date End Date Danna Gomez MD [address] [place] [address] PCP - General 06/09/23
--- OUTSIDE RECORDS SUMMARY | 2024-09-20 15:40 | XMS_ITS | Patient Health Record ---
Author Organization [facility] Address [address] [place] [address] Care Team Providers Care Utilities Operator Name Role Phone Danna Gomez Primary Care [...] remove after 12 hours Externally Once a day; Duration: 30 days 01/02/2020 Active amLODIPine Besylate 5 MG 1 tablet Orally Once a day Active Albuterol Sulfate 108 (90 Base) MCG/ACT 1 puff as needed Inhalation every 4 hrs Active Citracal Maximum Act lyndsey Problems Problem Type SNOMED Code ICD Code Onset Dates Problem Status W/U Status Risk Notes Problem Neurologic disorder associated with type II diabetes mellitus (478237915) Type 2 diabetes mellitus with other diabetic neurological complication (E11.49) Active confirmed Problem Lumbar radiculopathy (519439504) Lumbar radiculopathy, right (M54.16) Active confirmed Problem History of thyroidectomy (639236345) History of thyroidectomy (Z90.09) Active confirmed Plan Of Treatment No Information Insurance Providers Payer Name Payer Address Payer Phone Subscriber Number Group Number Insured Name Patient Relationship to Insured Coverage Start Date Coverage End Date [place] [address] [place] [id number] Hemalatha Andrews Self - patient is the [...]
[2024-09-20 15:47] VITALS: BP 164/77; PULSE 84; TEMP 35.7; O2SAT 96; BMI 34.2
== END 2024-09-20 16:21 | disposition home or self-care (01) ==
LOC: HO.HBS 15:36
PROVIDERS: PCP Internal Medicine; Visit Provider Physician Assistant Surgical
DX: E66.9 Obesity, unspecified (principal); Z98.84 Bariatric surgery status
CPT/HCPCS: 99214